=== PATIENT | male | born 1975 | race Caucasian/White ===

== ENCOUNTER 2019-12-06 08:25 | Outpatient (REF) | payer MEDICAID, SELFPAY ==
[2019-12-06 09:15] LABS: Anion Gap 12 (12-20); Blood Urea Nitrogen 11 mg/dL (9-16); Calcium 9.2 mg/dL (8.4-10.2); Carbon Dioxide 29 mmol/L (22-29); Chloride 102 mmol/L (96-108); Cholesterol 211 mg/dL; Estimated Glomerular Filt Rate > 60; Glucose Fasting 118 mg/dL (60-99); HDL Cholesterol 54 mg/dL; LDL Cholesterol Calculated 131 mg/dl; Sodium 139 mmol/L (135-145); Triglycerides 130 mg/dL
== END 2019-12-06 08:26 | disposition home or self-care (01) ==
LOC: HO.LAB 08:25
PROVIDERS: PCP Family Medicine; Visit Provider Internal Medicine Cardiovascular Disease
DX: E78.5 Hyperlipidemia, unspecified (principal)
CPT/HCPCS: 80048; 80061

== ENCOUNTER 2020-02-23 00:28 | Emergency (ER) | payer MEDICAID, SELFPAY ==
[2020-02-23 00:57] VITALS: BP 163/100; PULSE 68; RESP 18; TEMP 36.9; O2SAT 94; BMI 37.0
--- NOTE | 2020-02-23 01:05 | ECG_ITS ---
Test Reason : HIGH BP Blood Pressure : / mmHG Vent. Rate : 069 BPM Atrial Rate : 069 BPM P-R Int : 150 ms QRS Dur : 090 ms QT Int : 398 ms P-R-T Axes : 041 -07 001 degrees QTc Int : 426 ms Normal sinus rhythm Minimal voltage criteria for LVH, may be normal variant Nonspecific T wave abnormality Abnormal ECG When compared with ECG of 05-JUL-2018 18:47, T wave amplitude has increased in Anterior leads Referred By: Linda Ragland Electronically Signed By:JEY REY
[2020-02-23 01:40] LABS: MANUAL DIFF FLAG NO
[2020-02-23 01:43] LABS: Basophils Absolute Auto 0.1 X10*3/uL (0.0-0.2); Basophils Percent Auto 0.6 % (0-2); Eosinophils Absolute Auto 0.2 X10*3/uL (0.0-0.4); Eosinophils Percent Auto 1.7 % (0-4); Hematocrit 48.9 % (42-52); Hemoglobin 16.5 g/dl (14.0-18.0); Imm Gran Abs Auto 0.04 X10*3/uL (0.00-0.03); Imm Gran Pct Auto 0.4 % (0.0-0.4); Lymphocytes Absolute Auto 3.4 X10*3/uL (1.2-4.9); Lymphocytes Percent Auto 31.4 % (20-40); Mean Corpuscular HGB Conc 33.7 g/dl (31.0-36.0); Mean Corpuscular Hemoglobin 30.4 pg (27.0-33.0); Mean Corpuscular Volume 90.2 fL (80-98); Mean Platelet Volume 10.2 fL (9.4-12.4); Monocytes Absolute Auto 1.3 X10*3/uL (0.1-1.2); Monocytes Percent Auto 12.4 % (2-11); Neutrophils Absolute Auto 5.8 X10*3/uL (2.0-8.3); Neutrophils Percent Auto 53.5 % (45-73); Platelet Count 374 X10*3/uL (160-400); Red Blood Count 5.42 X10*6/uL (4.60-5.80); Red Cell Distribution Width 14.4 % (11.0-16.0); White Blood Count 10.8 X10*3/uL (4.8-10.8)
[2020-02-23 01:47] LABS: Glucose Urine UA NEG (NEG); Leukocyte Esterase Urine NEG (NEG); Nitrite Urine NEG (NEG); PH 6.5 (5.0-8.0); Urine Blood 1+ (NEG); Urine Ketones NEG (NEG); Urine Protein NEG (NEG-TRACE)
[2020-02-23 01:51] LABS: Appearance Urine CLEAR; Color Urine YELLOW
[2020-02-23 01:54] LABS: Squamous Epithelial Cell Urine TRACE /LPF; WBC Urine 0-2 /HPF (0-4)
[2020-02-23 02:07] LABS: Amphetamine Screen Urine Not Detected (Not Detect); Barbiturates, Urine Not Detected (Not Detect); Benzodiazepines Screen Urine Not Detected (Not Detect); Cannabinoid Screen Urine Not Detected (Not Detect); Cocaine Screen Urine Not Detected (Not Detect); Opiate Screen Urine Not Detected (Not Detect); Phencyclidine Screen Urine Not Detected (Not Detect)
[2020-02-23 02:09] LABS: Alanine Aminotransferase 81 U/L (0-40); Albumin Level 4.8 g/dL (3.5-5.0); Alkaline Phosphatase 92 U/L (39-117); Anion Gap 15 (12-20); Aspartate Amino Transferase 48 U/L (5-37); Bilirubin Total 0.5 mg/dL (0.0-1.0); Blood Urea Nitrogen 12 mg/dL (9-16); Calcium 10.2 mg/dL (8.4-10.2); Carbon Dioxide 28 mmol/L (22-29); Chloride 100 mmol/L (96-108); Creatinine Clr Calc Pharmacy 148.3; Estimated Glomerular Filt Rate > 60; Glucose Random 96 mg/dL (60-115); Potassium 3.5 mmol/l (3.3-5.1); Sodium 139 mmol/L (135-145)
[2020-02-23 02:12] LABS: Troponin-I High Sensitivity 8.9 ng/L (<3.5-35.0)
--- NOTE | 2020-02-23 03:47 | ED_ITS ---
HPI - General Adult General Chief complaint: General Medical Stated complaint: High Blood Pressure Time Seen by Provider: 02/23/20 00:53 Source: patient Mode of arrival: ambulatory History of Present Illness HPI narrative: This is a 44-year-old male who presents with onset of right-sided headache without any visual changes that started at approximately 6:00 p.m. and is not associated with speech or extremity abnormalities. Patient states that he treats his high blood pressure with twice daily hydrochlorothiazide but that he missed his morning dose. He denies any history of migraines and did attempt to take Tylenol for the headache but states that it did not improve. He otherwise denies neck pain or photosensitivity. Related Data Allergies Allergy/AdvReac Type Severity Reaction Status Date / Time No Known Allergies Allergy Verified 02/23/20 01:04 [No Known Allergies*] Review of Systems Review of Systems: Pertinent positives and negatives as stated in HPI 10 point review systems otherwise negative. PMFSH Past Medical History Source: nursing notes reviewed Medical History Hypertension Social History Social History Alcohol intake: unknown Smoking Status: Unknown if ever smoked Use of substances other than those prescribed or required for medical reasons: Unknown Advance Directives: No Advance Directives Information Provided: No Physical Exam Vital Signs: Vital Signs: Last Vital Signs Temp 98.4 F 02/23/20 00:57 Pulse 64 02/23/20 06:00 Resp 15 02/23/20 06:00 BP 141/82 H 02/23/20 06:00 Pulse Ox 98 02/23/20 06:00 Body Mass Index 37.0 VITAL SIGNS: Reviewed. GENERAL: Well developed, well nourished, in no acute distress. HEAD: Normocephalic/atraumatic, EYES: PERRLA, EOMI intact without pain, no nystagmus/pallor/icterus noted EARS: Ext canals without abnormality NOSE: Nares patent bilateral OROPHARYNX: no oral lesions noted, posterior pharynx clear NECK: Supple, no adenopathy LUNGS: Normal breath sounds. SpO2<94> CARDIOVASCULAR: Regular rate and rhythm without noted murmurs, no JVD or lower extremity edema. ABDOMEN: Soft, non-tender, non-distended with bowel sounds. NEUROLOGIC: Alert and oriented x 4. Strength and sensation to light touch were grossly intact x 4, cranial nerves 2-12 are grossly intact, no pronator drift. Course Course Course Narrative: This is a 44-year-old male with history and clinical presentation consistent likely tension/migraine like headache and no focal deficits. All investigations reviewed thus far are without acute findings other than a mildly elevated troponin of 8.9 which will be repeated at 4:30 a.m. but there are no changes on EKG to suggest cardiac ischemia. Urinalysis is negative for presence of protein. HEART Score:3 Repeat troponin does not exceed delta 50, patient is asymptomatic, and there are no acute EKG changes when compared to prior. Patient was informed of all results and findings, communicated that he had significant improvement of his symptoms of headache and nausea, and was discharged in stable condition with instructions to follow-up with his primary care provider. Medical Decision Making Lab Data Result diagrams: 02/23/20 01:02/23/20 01:32 Labs: Lab Results 02/23/20 02/23/20 02/23/20 Range/Units 01:32 01:32 01:32 WBC 10.8 (4.8-10.8) X10*3/uL RBC 5.42 (4.60-5.80) X10*6/uL Hgb 16.5 (14.0-18.0) g/dl Hct 48.9 (42-52) % MCV 90.2 (80-98) fL MCH 30.4 (27.0-33.0) pg MCHC 33.7 (31.0-36.0) g/dl RDW 14.4 (11.0-16.0) % Plt Count 374 (160-400) X10*3/uL MPV 10.2 (9.4-12.4) fL Immature Gran % (Auto) 0.4 (0.0-0.4) % Neut % (Auto) 53.5 (45-73) % Lymph % (Auto) 31.4 (20-40) % [place] % (Auto) 12.4 H (2-11) % Eos % (Auto) 1.7 (0-4) % Baso % (Auto) 0.6 (0-2) % Lymph # (Auto) 3.4 (1.2-4.9) X10*3/uL [place] # (Auto) 1.3 H (0.1-1.2) X10*3/uL Eos # (Auto) 0.2 (0.0-0.4) X10*3/uL Baso # (Auto) 0.1 (0.0-0.2) X10*3/uL Abs Immat Gran (auto) 0.04 H (0.00-0.03) X10*3/uL Absolute Neuts (auto) 5.8 (2.0-8.3) X10*3/uL Absolute Nucleated RBC 0.000 (0.0-0.012) X10*3/uL Nucleated RBC % (auto) 0.0 (0.0-0.2) /100WBC Sodium 139 (135-145) mmol/L Potassium 3.5 (3.3-5.1) mmol/l Chloride 100 (96-108) mmol/L Carbon Dioxide 28 (22-29) mmol/L Anion Gap 15 (12-20) BUN 12 (9-16) mg/dL Creatinine 0.83 (0.5-1.4) mg/dL Estim Creat Clear Calc 148.3 Estimated GFR > 60 Random Glucose 96 (60-115) mg/dL Calcium 10.2 D (8.4-10.2) mg/dL Total Bilirubin 0.5 (0.0-1.0) mg/dL AST 48 H (5-37) U/L ALT 81 H (0-40) U/L Alkaline Phosphatase 92 (39-117) U/L Troponin I High Sens 8.9 (<3.5-35.0) ng/L Total Protein 8.0 (6.5-8.0) g/dL Albumin 4.8 (3.5-5.0) g/dL Urine Color Urine Appearance Urine pH (5.0-8.0) Ur Specific [place] (1.005-1.025) Urine Protein (NEG-TRACE) MG/DL Urine Glucose (UA) (NEG) MG/DL Urine Ketones (NEG) MG/DL Urine Blood (NEG) Urine Nitrite (NEG) Ur Leukocyte Esterase (NEG) Urine RBC (0) /HPF Urine WBC (0-4) /HPF Ur Squamous Epith Cells /LPF Urine Bacteria /LPF Urine Opiates Screen (Not Detect) Ur Barbiturates Screen (Not Detect) Ur Phencyclidine Scrn (Not Detect) Ur Amphetamines Screen (Not Detect) U Benzodiazepines Scrn (Not Detect) Urine Cocaine Screen (Not Detect) U Marijuana (THC) Screen (Not Detect) 02/23/20 02/23/20 02/23/20 Range/Units 01:32 01:32 03:50 WBC (4.8-10.8) X10*3/uL RBC (4.60-5.80) X10*6/uL Hgb (14.0-18.0) g/dl Hct (42-52) % MCV (80-98) fL MCH (27.0-33.0) pg MCHC (31.0-36.0) g/dl RDW (11.0-16.0) % Plt Count (160-400) X10*3/uL MPV (9.4-12.4) fL Immature Gran % (Auto) (0.0-0.4) % Neut % (Auto) (45-73) % Lymph % (Auto) (20-40) % [place] % (Auto) (2-11) % Eos % (Auto) (0-4) % Baso % (Auto) (0-2) % Lymph # (Auto) (1.2-4.9) X10*3/uL [place] # (Auto) (0.1-1.2) X10*3/uL Eos # (Auto) (0.0-0.4) X10*3/uL Baso # (Auto) (0.0-0.2) X10*3/uL Abs Immat Gran (auto) (0.00-0.03) X10*3/uL Absolute Neuts (auto) (2.0-8.3) X10*3/uL Absolute Nucleated RBC (0.0-0.012) X10*3/uL Nucleated RBC % (auto) (0.0-0.2) /100WBC Sodium (135-145) mmol/L Potassium (3.3-5.1) mmol/l Chloride (96-108) mmol/L Carbon Dioxide (22-29) mmol/L Anion Gap (12-20) BUN (9-16) mg/dL Creatinine (0.5-1.4) mg/dL Estim Creat Clear Calc Estimated GFR Random Glucose (60-115) mg/dL Calcium (8.4-10.2) mg/dL Total Bilirubin (0.0-1.0) mg/dL AST (5-37) U/L ALT (0-40) U/L Alkaline Phosphatase (39-117) U/L Troponin I High Sens 9.4 (<3.5-35.0) ng/L Total Protein (6.5-8.0) g/dL Albumin (3.5-5.0) g/dL Urine Color YELLOW Urine Appearance CLEAR Urine pH 6.5 (5.0-8.0) Ur Specific [place] 1.020 (1.005-1.025) Urine Protein NEG (NEG-TRACE) MG/DL Urine Glucose (UA) NEG (NEG) MG/DL Urine Ketones NEG (NEG) MG/DL Urine Blood 1+ H (NEG) Urine Nitrite NEG (NEG) Ur Leukocyte Esterase NEG (NEG) Urine RBC 1-4 (0) /HPF Urine WBC 0-2 (0-4) /HPF Ur Squamous Epith Cells TRACE /LPF Urine Bacteria NONE /LPF Urine Opiates Screen Not Detected (Not Detect) Ur Barbiturates Screen Not Detected (Not Detect) Ur Phencyclidine Scrn Not Detected (Not Detect) Ur Amphetamines Screen Not Detected (Not Detect) U Benzodiazepines Scrn Not Detected (Not Detect) Urine Cocaine Screen Not Detected (Not Detect) U Marijuana (THC) Screen Not Detected (Not Detect) ECG Data Attestation: I personally reviewed and interpreted this ECG as follows: Interpretation: Normal sinus rhythm, heart rate-69, no evidence acute ischemia, OK/QRS/QTC are within normal limits. Discharge Plan Discharge Clinical Impression: Elevated blood pressure reading Headache Qualifiers: Headache type: unspecified Headache chronicity pattern: acute headache Intractability: not intractable Qualified Code(s): R51.9 - Headache, unspecified Patient Disposition: Home, Self-Care Instructions: Hypertension (ED), General Headache (ED) Additional Instructions: 1. Reanude todos los medicamentos caseros seg?n lo prescrito, especialmente los medicamentos para la presi?n arterial. 2. Tylenol 1000 mg, por v?a oral, cada 6 horas seg?n sea necesario para el dolor de javier. 3. Ibuprofeno 400 mg, por v?a oral con leche o alimentos, cada 6 horas seg?n sea necesario para el dolor de javeir. Incrementa la hidrataci?n de fluidos especialmente con agua. 4. Edward un seguimiento con el proveedor de atenci?n primaria. Referrals: Physician,Unknown [Primary Care Provider] - 2 days (Re-evaluation and management for headache and blood pressure.) Stand Alone Forms: Work/School Release Print Language: Irish
[2020-02-23] MEDS: Acetaminophen 325 MG TABLET 975 MG PO (03:51)
[2020-02-23] MEDS: Ketorolac Tromethamine 15 MG/ML VIAL IM (03:53)
[2020-02-23 03:55] VITALS: BP 146/94; PULSE 64; RESP 15; O2SAT 96
--- NOTE | 2020-02-23 03:59 | PC.NURSE ---
patient medicated per emar as noted. Patient complaining of 10/10 pain on right side of his head
[2020-02-23 04:27] LABS: Troponin-I High Sensitivity 9.4 ng/L (<3.5-35.0)
[2020-02-23 06:00] VITALS: BP 141/82; PULSE 64; RESP 15; O2SAT 98
== END 2020-02-23 06:45 | disposition home or self-care (01) ==
PROVIDERS: Emergency Provider Student in an Organized Health Care Education/Training Program
DX: R51.9 Headache, unspecified (principal); I10 Essential (primary) hypertension; Z79.899 Other long term (current) drug therapy
CPT/HCPCS: 36415; 80053; 80307; 81001; 84484; 85025; 93005; 96372; 99284; J1885

== ENCOUNTER 2020-03-04 16:13 | Outpatient (REF) | payer MEDICAID, SELFPAY | END 2020-03-04 16:14 | disposition home or self-care (01) | LOC: HO.LAB 16:13 | PROVIDERS: Visit Provider Internal Medicine | DX: Z20.822 Contact with and (suspected) exposure to COVID-19 (principal) | CPT/HCPCS: 36415; C9803; U0003 ==

== ENCOUNTER 2020-03-26 06:38 | Outpatient (REF) | payer MEDICAID, SELFPAY ==
[2020-03-26 07:53] LABS: Cholesterol 131 mg/dL; HDL Cholesterol 46 mg/dL; LDL Cholesterol Calculated 68 mg/dl; Triglycerides 85 mg/dL
[2020-03-26 07:56] LABS: Estimated Average Glucose 114 mg/dL; Hemoglobin A1c % 5.6 %
[2020-03-26 08:09] LABS: TSH reflex Free T4 6.07 uIU/mL (0.32-4.0)
[2020-03-26 08:16] LABS: HIV AB/AG Nonreactive (Nonreactive); HIV Num 1 0.07 S/CO (0.00-0.99)
[2020-03-26 08:53] LABS: Free T4 (Free Thyroxine) 0.81 ng/dL (0.71-1.85)
[2020-03-28 03:56] LABS: C. trachomatis RNA TMA NOT DETECTED (NOT DETECTED); N. gonorrhoeae RNA TMA NOT DETECTED (NOT DETECTED)
== END 2020-03-26 06:39 | disposition home or self-care (01) ==
LOC: HO.LAB 06:38
PROVIDERS: PCP Nurse Practitioner Primary Care; Visit Provider Nurse Practitioner Primary Care
DX: Z11.4 Encounter for screening for human immunodeficiency virus [HIV] (principal); Z11.3 Encounter for screening for infections with a predominantly sexual mode of transmission; E03.9 Hypothyroidism, unspecified; E87.6 Hypokalemia; I10 Essential (primary) hypertension; N40.1 Benign prostatic hyperplasia with lower urinary tract symptoms; N42.81 Prostatodynia syndrome
CPT/HCPCS: 36415; 80061; 83036; 84439; 84443; 87389; 87491; 87591

== ENCOUNTER 2020-03-30 18:43 | Outpatient (REF) | payer MEDICAID, SELFPAY ==
--- NOTE | ~2020-03-30 | MR_ITS ---
EXAMINATION: MR LUMBAR SPINE WITHOUT CONTRAST CLINICAL INFORMATION: 3 month low back pain to groin numbness in genital area. COMPARISON: None TECHNIQUE: MRI of the lumbar spine was obtained using routine sequences without contrast. FINDINGS: The lumbar vertebral bodies maintain normal height and alignment. No significant disc height loss is seen. There is no bone marrow edema. The distal spinal cord appears normal. The conus medullaris terminates normally at the L2 level. The visualized paraspinal muscles and intra-abdominal and pelvic contents are within normal limits. SPINAL LEVELS: L1-L2: No posterior disc abnormality. No spinal canal or neural foraminal stenosis. L2-L3: No posterior disc abnormality. No spinal canal or neural foraminal stenosis. L3-L4: Left and right foraminal protrusions are seen compressing the left more than right exiting L3 nerve roots. Mild facet arthropathy. No significant spinal canal stenosis. L4-L5: Disc bulging with mild to moderate facet arthropathy. Mild spinal canal stenosis and bilateral subarticular stenosis. Left foraminal protrusion with small extrusion component is seen compressing the exiting left L4 nerve root. Right foraminal protrusion is also seen mildly compressing the exiting right L4 nerve root. L5-S1: Broad-based left subarticular/foraminal protrusion is seen compressing the traversing left S1 and exiting left L5 nerve root. No spinal canal stenosis. No right-sided foraminal nerve root compression. MR/MR lumbar spine wo con IMPRESSION: At L3-L4 there are left greater than right foraminal protrusions resulting in compression of the exiting left L3-4 than right L3 nerve root. At L4-L5 there is left foraminal protrusion with small extrusion component is seen compressing the exiting left L4 nerve root. Right foraminal protrusion mildly compresses the exiting right L4 nerve root. At L5-S1 there is left subarticular/foraminal protrusion seen compressing the traversing left S1 and exiting left L5 nerve root.
== END 2020-03-30 18:44 | disposition home or self-care (01) ==
LOC: HO.MRI 18:43
PROVIDERS: Visit Provider Nurse Practitioner Primary Care
DX: M54.5 Low back pain (principal); R10.30 Lower abdominal pain, unspecified
CPT/HCPCS: 72148

== ENCOUNTER 2020-06-21 16:53 | Emergency (ER) | payer MEDICAID, SELFPAY ==
[2020-06-21 18:54] VITALS: BP 135/84; PULSE 79; RESP 18; TEMP 37.4; O2SAT 98; BMI 35.9
[2020-06-21] MEDS: Lidocaine HCl 1 % MPF 5 ML VIAL SUBCUT (19:27)
[2020-06-21] MEDS: cephALEXin 500 MG CAPSULE PO (19:28)
[2020-06-21] MEDS: Ibuprofen 800 MG TABLET PO (19:28)
--- NOTE | 2020-06-21 19:36 | ED_ITS ---
HPI - Skin/Abscess/Foreign Bdy General Chief complaint: Skin/Abscess/Foreign Body Stated complaint: insect bite on foot Time Seen by Provider: 06/21/20 19:08 Source: patient Mode of arrival: ambulatory Limitations: no limitations History of Present Illness complaint: abscess/boil Onset (ago): day(s) (Three days) Tetanus up to date: unsure Location: RLE Severity: moderate Severity scale (1-10): 10 Quality: aching Pain Consistency: constant Relieving factors: none Exacerbating factors: none Context: other (Possible bug bite) Associated symptoms: denies other symptoms Treatments prior to arrival: none Related Data Previous Rx's Medication Instructions Recorded acetaminophen [Tylenol Extra 1,000 mg PO QID PRN #14 tab 06/21/20 Strength] cephalexin 500 mg PO BID 14 Days #28 cap 06/21/20 doxycycline monohydrate 100 mg PO BID 14 Days #28 cap 06/21/20 ibuprofen 800 mg PO Q8H PRN #14 tab 06/21/20 oxycodone 5 mg PO BID PRN #10 tab 06/21/20 Allergies Allergy/AdvReac Type Severity Reaction Status Date / Time No Known Allergies Allergy Verified 06/21/20 18:54 [No Known Allergies*] Review of Systems Review of Systems: Constitutional : No Fever, No Chills, Cardiovascular : No Chest Pain, No SOB Respiratory : No Dyspnea Gastrointestinal : No abdominal pain Musculoskeletal : No Joint Swelling Skin : positive abscess/surrounding erythema, no skin laceration, No Foreign bodies, No rash Neuro : No Weakness, No Numbness/tingling Psych : No SI/HI/thoughts of self injury Yes all other systems are reviewed and are negative [facility] Past Medical History Attestation statement: The following information was validated with the patient. Medical History Hypertension Social History Social History Alcohol intake: unknown Smoking Status: Unknown if ever smoked Advance Directives: No Advance Directives Information Provided: No Physical Exam Vital Signs: Vital Signs: Last Vital Signs Temp 99.3 F 06/21/20 18:54 Pulse 79 06/21/20 18:54 Resp 18 06/21/20 18:54 BP 135/84 06/21/20 18:54 Pulse Ox 98 05/17/21 18:54 Body Mass Index 35.9 vital signs have been reviewed as normal and appeared to be correct. Blood pressure normal. Heart rate normal. Respiration rate normal. Temperature normal. Oxygen saturation normal. Appearance: Alert. Oriented X3. No acute distress. Head: Normal external exam. Normocephalic. Eyes: PERRLA. EOMI. Conjunctiva and sclera normal. Eyelids normal. ENT: Pharynx normal. Uvula midline. Moist mucous membranes. Neck: Normal inspection. Neck supple. FROM. No adenopathy. No meningeal signs. CVS: Normal heart rate and rhythm. Heart sound normal. No murmurs noted. Pulses normal throughout. Respiratory: No respiratory distress. Painless inspiration. Breath sounds normal. No wheezes/rales/rhonchi noted. Chest nontender. No accessory muscle usage noted or decreased air movement noted. Back: Full range of motion noted. Skin: Patient with moderate erythema and fluctuance to right lower leg no streaking/induration/foreign bodies noted at this time. The rest of the Skin is warm and dry. Normal skin color. Normal skin turgor. No rashes/lesions/lacerations noted. Extremities: Extremities exhibit normal range of motion. Extremities nontender. Neuro: Oriented X 3. No motor deficit. No sensory deficit. Reflexes normal. Normal steady gait. Procedures Abscess I/D Site: lower extremity (Lower extremity) Side (if applicable): right Local Anesthetic: lidocaine 1% Amount of anesthesia used (mL): 5 Technique: needle aspiration and incised with blade Amount of fluid expressed (mL): 5 Sent for culture/gram staining?: No Irrigation: Yes Packing used?: none MDM - Skin/Abscess/Foreign Bdy Medical Records Attestation: I reviewed the patient's medical records. Discharge Plan Discharge Clinical Impression: Cellulitis, Abscess of skin or subcutaneous tissue Patient Disposition: Home, Self-Care Instructions: Cellulitis (ED), Abscess (ED) Prescriptions: New ibuprofen 800 mg tablet 800 mg PO Q8H PRN (Reason: pain) Qty: 14 RF: 0 acetaminophen [Tylenol Extra Strength] 500 mg tablet 1,000 mg PO QID PRN (Reason: fever or pain) Qty: 14 RF: 0 doxycycline monohydrate 100 mg capsule 100 mg PO BID 14 Days Qty: 28 RF: 0 cephalexin 500 mg capsule 500 mg PO BID 14 Days Qty: 28 RF: 0 oxycodone 5 mg tablet 5 mg PO BID PRN (Reason: pain) Qty: 10 RF: 0 Referrals: Karolina Adames NP [Primary Care Provider] - 2 days Stand Alone Forms: Work/School Release Print Language: [place]ian
== END 2020-06-21 19:50 | disposition home or self-care (01) ==
PROVIDERS: Emergency Provider Emergency Medicine Emergency Medical Services; PCP Nurse Practitioner Primary Care
DX: L02.415 Cutaneous abscess of right lower limb (principal); L03.115 Cellulitis of right lower limb; I10 Essential (primary) hypertension
CPT/HCPCS: 10060; 99284

== ENCOUNTER 2020-09-17 15:47 | Outpatient (REF) | payer MEDICAID, SELFPAY ==
--- NOTE | ~2020-09-17 | US_ITS ---
EXAMINATION: US SCROTUM CLINICAL INFORMATION: Deep groin pain. COMPARISON: Scrotal ultrasound dated 01/01/2018 TECHNIQUE: A sonogram of the scrotum was performed assessing frye-scale appearance and color Doppler flow. Spectral Doppler analysis of the arterial and venous flow were performed in the testes bilaterally. FINDINGS: RIGHT: Right testicle measures 5.2 x 3.0 x 3.6 cm, volume 29.5 mL. No focal testicular parenchymal lesions are visualized. Spectral Doppler analysis of the arterial and venous flow is normal in the right testis. Right epididymal head is normal in size. Complex right epididymal head cyst measuring 0.4 cm. This previously appeared simple on the ultrasound from 2018. No right varicocele is seen. Probable small amount of physiologic fluid within the right scrotum. Right epididymal Doppler flow is normal. LEFT: Left testicle measures 5.6 x 3.0 x 3.1 cm, volume 27.3 mL. No focal testicular parenchymal lesions are visualized. Spectral Doppler analysis of the arterial and venous flow is normal in the left testis. Left epididymal head is normal in size. No left varicocele is seen. Probable small amount of physiologic fluid within the left scrotum. Left epididymal Doppler flow is normal. US/US scrotum IMPRESSION: 1. Complex right epididymal head cyst measuring 0.4 cm. The cyst is unchanged in size and previously appeared simple in 2018. 2. Trace fluid within the right and left scrotum, likely representing trace physiologic fluid. 3. Sonographically unremarkable right and left testicle.
== END 2020-09-17 15:48 | disposition home or self-care (01) ==
LOC: HO.US 15:47
PROVIDERS: PCP Nurse Practitioner Primary Care; Visit Provider Nurse Practitioner Primary Care
DX: R10.30 Lower abdominal pain, unspecified (principal)
CPT/HCPCS: 76870

== ENCOUNTER 2020-12-12 13:20 | Emergency (ER) | payer MEDICAID, SELFPAY ==
[2020-12-12 13:59] VITALS: BP 138/82; PULSE 78; RESP 16; TEMP 36.3; O2SAT 100; BMI 34.4
--- NOTE | 2020-12-12 13:59 | ED.BACK ---
HPI - Back Pain/Injury General Chief Complaint: Back Pain/Injury Stated Complaint: back pain Time Seen by Provider: 12/12/20 13:58 Source: patient Mode of arrival: ambulatory Limitations: no limitations History of Present Illness HPI Narrative: declined medical interpreter, elicited complaint: back pain and back injury Pertinent past history: prior back pain Onset (ago): day(s) (Sunday) Timing: constant Severity: moderate Similar Symptoms Previously: Yes Quality: spasming and throbbing Location: lumbar spine and thoracic spine Radiation: none Exacerbating factors: movement and walking Relieving factors: none Context: other (painting and bending over felt a pull and since then has had pain) Associated symptoms: denies other symptoms Treatments prior to arrival: NSAIDS Work related injury: Yes Related Data Previous Rx's Medication Instructions Recorded acetaminophen 500 mg tablet 1,000 mg PO QID PRN #14 tab 06/21/20 (Tylenol Extra Strength) cephalexin 500 mg capsule 500 mg PO BID 14 Days #28 cap 06/21/20 doxycycline monohydrate 100 mg 100 mg PO BID 14 Days #28 cap 06/21/20 capsule ibuprofen 800 mg tablet 800 mg PO Q8H PRN #14 tab 06/21/20 oxycodone 5 mg tablet 5 mg PO BID PRN #10 tab 06/21/20 diazepam 5 mg tablet (Valium) 5 mg PO TID PRN #10 tab 12/12/20 lidocaine 4 % topical patch 1 patch TOPICAL DAILY PRN #10 ea 12/12/20 Allergies Allergy/AdvReac Type Severity Reaction Status Date / Time No Known Allergies Allergy Verified 06/21/20 18:54 [No Known Allergies*] Review of Systems Review of Systems: Constitutional : No Weight loss, No Fever, No Chills, ENT/Mouth : No Hearing loss, No Ear Pain, No Nasal Congestion, No Sinus Pain, No Hoarseness, No sore throat, No Rhinorrhea, No Swallowing Difficulty Cardiovascular : No Chest Pain, No SOB Respiratory : No Cough, No Dyspnea Gastrointestinal : No Nausea, No Vomiting, No Diarrhea, No abdominal Pain, No Hematochezia, No Melena Genitourinary : No Dysuria, No Urinary Frequency, No Hematuria, No Urinary Incontinence, Musculoskeletal : positive back pain Skin : No Skin Lesions, No rash Neuro : No Weakness, No Numbness, No Paresthesias, no loss of bowel or bladder incontinence, no saddle anesthesia [facility] Past Medical History Attestation statement: The following information was validated with the patient. Medical History Hypertension Social History Social History (Updated 12/12/20 @ 14:04 by Desire Caputo DO) Alcohol intake: unknown Patient Tobacco Use Status: Never used Tobacco Use of substances other than those prescribed or required for medical reasons: No Advance Directives: No Physical Exam Vital Signs: Appearance: Alert. Oriented X3. No acute distress. Eyes: Pupils equal, round and reactive to light. ENT: Pharynx normal. Neck: Normal inspection. Neck supple. CVS: Normal heart rate and rhythm. Pulses normal. Respiratory: No respiratory distress. Breath sounds normal. Abdomen: Soft and nontender. Back: paraspinal spasm on R side from mid lumbar up to thoracic reproduces pain Skin: Skin warm and dry. Normal skin color. Normal skin turgor. Extremities: No lower extremity edema. SILT inner thigh Neuro: Oriented X 3. No motor deficit. No sensory deficit. MDM - Back Pain/Injury MDM Narrative Medical decision making narrative: 44 yo male with HTN here after R sided back spasms - no b/b incontinence, no saddle anesthesia no IVDA started after rolling paint and bending over - no red flags, pain patches and muscle relaxers, anticipate DC home Discharge Plan Discharge Clinical Impression: Paraspinal muscle spasm Patient Disposition: Home, Self-Care Instructions: Muscle Spasm (ED) Additional Instructions: return to ED for any worsening symptoms or concerns apply heat and massage aplicarenu gates Prescriptions: New lidocaine 4 % adhesive patch,medicated 1 patch topical DAILY PRN (Reason: pain) Qty: 10 RF: 0 diazepam [Valium] 5 mg tablet 5 mg PO TID PRN (Reason: muscle spasm) Qty: 10 RF: 0 No Action ibuprofen 800 mg tablet 800 mg PO Q8H PRN (Reason: pain) Qty: 14 RF: 0 acetaminophen [Tylenol Extra Strength] 500 mg tablet 1,000 mg PO QID PRN (Reason: fever or pain) Qty: 14 RF: 0 doxycycline monohydrate 100 mg capsule 100 mg PO BID 14 Days Qty: 28 RF: 0 cephalexin 500 mg capsule 500 mg PO BID 14 Days Qty: 28 RF: 0 oxycodone 5 mg tablet 5 mg PO BID PRN (Reason: pain) Qty: 10 RF: 0 Stand Alone Forms: Work/School Release
[2020-12-12] MEDS: Cyclobenzaprine HCl 10 MG TABLET PO (14:06)
[2020-12-12] MEDS: Lidocaine 4 % Patch ADH..PATCH 2 PATCH TRANSDERMA (14:06)
== END 2020-12-12 14:13 | disposition home or self-care (01) ==
PROVIDERS: Emergency Provider Emergency Medicine; PCP Nurse Practitioner Primary Care
DX: Z04.2 Encounter for examination and observation following work accident (principal); M62.830 Muscle spasm of back; M54.50 Low back pain, unspecified; M54.6 Pain in thoracic spine; I10 Essential (primary) hypertension
CPT/HCPCS: 99283; 99284

== ENCOUNTER 2021-04-07 18:54 | Emergency (ER) | payer MEDICAID, SELFPAY ==
[2021-04-07 19:52] VITALS: BP 131/85; PULSE 82; RESP 18; TEMP 36.6; O2SAT 96; BMI 38.9
--- NOTE | 2021-04-07 22:06 | ED_ITS ---
HPI - General Adult General Chief complaint: Skin/Abscess/Foreign Body Stated complaint: Right side underarm abscess Time Seen by Provider: 04/07/21 22:06 Source: patient Mode of arrival: ambulatory Limitations: no limitations History of Present Illness HPI narrative: 45-year-old male presents to ED for right underarm painful lump present for the past 5 days. Patient states history of recurrent abscesses. Patient denies any fever, chills, any recent trauma to right upper extremity. Related Data Previous Rx's Medication Instructions Recorded acetaminophen 500 mg tablet 1,000 mg PO QID PRN #14 tab 06/21/20 (Tylenol Extra Strength) cephalexin 500 mg capsule 500 mg PO BID 14 Days #28 cap 06/21/20 doxycycline monohydrate 100 mg 100 mg PO BID 14 Days #28 cap 06/21/20 capsule ibuprofen 800 mg tablet 800 mg PO Q8H PRN #14 tab 06/21/20 oxycodone 5 mg tablet 5 mg PO BID PRN #10 tab 06/21/20 diazepam 5 mg tablet (Valium) 5 mg PO TID PRN #10 tab 12/12/20 lidocaine 4 % topical patch 1 patch TOPICAL DAILY PRN #10 ea 12/12/20 cephalexin 500 mg capsule 500 mg PO QID 7 Days #28 cap 04/07/21 doxycycline hyclate 100 mg capsule 100 mg PO BID 7 Days #14 cap 04/07/21 naproxen 500 mg tablet 500 mg PO BID PRN 10 Days #20 tab 04/07/21 Allergies Allergy/AdvReac Type Severity Reaction Status Date / Time No Known Allergies Allergy Verified 04/07/21 19:51 [No Known Allergies*] Review of Systems Review of Systems: Painful lump on the right upper extremity Yes all other systems are reviewed and are negative ON LICENSE OF [facility] Past Medical History Medical History (Updated 04/08/21 @ 00:02 by Radha Blandon) Abscess Hypertension Social History Social History (Updated 12/12/20 @ 14:04 by Desire Caputo DO) Alcohol intake: unknown Patient Tobacco Use Status: Never used Tobacco Advance Directives: No Advance Directives Information Provided: Yes Physical Exam ED Vital Signs: Vital Signs - 24 hr 04/07/21 19:52 Temperature 97.8 F Pulse Rate 82 Respiratory Rate 18 Blood Pressure 131/85 Pulse Oximetry 96 BMI result Body Mass Index 38.9 Const General: cooperative, healthy appearing, comfortable, no acute distress, well developed, alert, awake and Physically active Orientation/consciousness: patient oriented x3 [facility] Head: Yes normal to inspection, Yes No palpable skull fracture present, Yes normocephalic, Yes atraumatic and No abrasion Eyes General: appearance normal, both eyes and all related structures Neck Neck: Yes normal visual inspection, Yes full ROM, Yes no lymphadenopathy, Yes no meningeal signs, Yes trachea midline, Yes supple, No anterior neck swelling and No tender Chest Chest palpation & inspection: normal inspection of the chest and normal palpation of entire chest wall Chest/axillae images: 1. Small size lump that is erythematous and tender on palpation. Lump is hard and nonfluctuant. Resp Effort & Inspection: normal respiratory effort and able to speak in complete sentences Auscultation: clear to auscultation bilaterally Cardio Jugular venous distension: no JVD Heart sounds: S1 normal heart sound present and S2 normal heart sound present GI Inspection: Yes normal to inspection and No abdominal wall ecchymosis Palpation (GI): Soft to palpation, not firm, nontender, no guarding and not rigid General: No CVA tenderness and Yes no CVA tenderness Back/Spine/Pelvis Back: no CVA tenderness, No CVA tenderness and No back tenderness Skin General skin exam: no rashes or lesions noted and elasticity normal Neuro General: patient oriented x3, gait normal, no meningeal signs and CN's II-XI intact bilaterally Cranial nerves: Yes CN's II-XII intact bilaterally Extrem General: Yes normal to inspection and Yes full ROM Psych Appearance: grossly normal, well kempt and not disheveled Course Course Course Narrative: Early abscess Reevaluation(s) Reevaluation #1: Abscess not yet ready to be drained. Patient will be discharged with antibiotics educated on warm compress. Time: 22:10 Medical Decision Making [facility] Narrative Medical decision making narrative: Early abscess Discharge Plan Discharge Clinical Impression: Abscess of skin or subcutaneous tissue Patient Disposition: Home, Self-Care Instructions: Abscess (ED) Additional Instructions: Presently no indication for incision and drainage. Recommend antibiotics warm compress 4 times a day for 15 minutes. Return to the ED immediately for increased size, severe pain, worsening redness, pus discharge, foul odor, fever, chills, or any other concerning symptoms Prescriptions: New cephalexin 500 mg capsule 500 mg PO QID 7 Days Qty: 28 0RF doxycycline hyclate 100 mg capsule 100 mg PO BID 7 Days Qty: 14 0RF naproxen 500 mg tablet 500 mg PO BID PRN (Reason: pain) 10 Days Qty: 20 0RF No Action ibuprofen 800 mg tablet 800 mg PO Q8H PRN (Reason: pain) Qty: 14 0RF acetaminophen [Tylenol Extra Strength] 500 mg tablet 1,000 mg PO QID PRN (Reason: fever or pain) Qty: 14 0RF doxycycline monohydrate 100 mg capsule 100 mg PO BID 14 Days Qty: 28 0RF cephalexin 500 mg capsule 500 mg PO BID 14 Days Qty: 28 0RF oxycodone 5 mg tablet 5 mg PO BID PRN (Reason: pain) Qty: 10 0RF lidocaine 4 % adhesive patch,medicated 1 patch topical DAILY PRN (Reason: pain) Qty: 10 0RF Rx Instructions: may leave on for up to 12 hrs diazepam [Valium] 5 mg tablet 5 mg PO TID PRN (Reason: muscle spasm) Qty: 10 0RF Stand Alone Forms: Work/School Release Interventions: ED Discharge Assessment Last Done: 04/07/21 22:43 Discharge Date/Time: 04/07/21 22:44 Print Language: Greenlandic
--- NOTE | 2021-04-07 22:43 | PC.NURSE ---
2215 PT NOT IN ROOM. ? LEFT AFTER EVAL.
== END 2021-04-07 22:44 | disposition home or self-care (01) ==
PROVIDERS: Emergency Provider Emergency Medicine Emergency Medical Services; PCP Nurse Practitioner Primary Care
DX: L02.411 Cutaneous abscess of right axilla (principal); M79.621 Pain in right upper arm; I10 Essential (primary) hypertension
CPT/HCPCS: 99283

== ENCOUNTER 2021-04-23 21:23 | Emergency (ER) | payer MEDICAID, SELFPAY ==
[2021-04-23 22:03] VITALS: BP 144/89; PULSE 87; RESP 20; TEMP 37.2; O2SAT 97; BMI 35.6
--- NOTE | 2021-04-23 22:25 | ED.URI ---
HPI - URI/Sore Throat General Chief Complaint: Upper Respiratory Symptoms Stated Complaint: Sinus congestion Time Seen by Provider: 04/23/21 22:20 Source: patient Mode of arrival: ambulatory Limitations: no limitations History of Present Illness MD elicited complaint: nasal congestion and sinus pain Pertinent past history: sinusitis Onset (ago): day(s) (5) Consistency: constant Severity: moderate Description of mucous: clear Able to tolerate fluids by mouth: Yes Exacerbating factors: supine positioning and leaning forward Relieving factors: nothing Associated symptoms: nasal congestion Treatments prior to arrival: other (tried OTC medications, nasal spray, flonase, zyrtec) Related Data Previous Rx's Medication Instructions Recorded acetaminophen 500 mg tablet 1,000 mg PO QID PRN #14 tab 06/21/20 (Tylenol Extra Strength) cephalexin 500 mg capsule 500 mg PO BID 14 Days #28 cap 06/21/20 doxycycline monohydrate 100 mg 100 mg PO BID 14 Days #28 cap 06/21/20 capsule ibuprofen 800 mg tablet 800 mg PO Q8H PRN #14 tab 06/21/20 oxycodone 5 mg tablet 5 mg PO BID PRN #10 tab 06/21/20 diazepam 5 mg tablet (Valium) 5 mg PO TID PRN #10 tab 12/12/20 lidocaine 4 % topical patch 1 patch TOPICAL DAILY PRN #10 ea 12/12/20 cephalexin 500 mg capsule 500 mg PO QID 7 Days #28 cap 04/07/21 doxycycline hyclate 100 mg capsule 100 mg PO BID 7 Days #14 cap 04/07/21 naproxen 500 mg tablet 500 mg PO BID PRN 10 Days #20 tab 04/07/21 amoxicillin 875 mg-potassium 1 tab PO BID #14 tab 04/23/21 clavulanate 125 mg tablet prednisone 20 mg tablet 60 mg PO DAILY 4 Days #12 tab 04/23/21 Allergies Allergy/AdvReac Type Severity Reaction Status Date / Time No Known Allergies Allergy Verified 04/07/21 19:51 [No Known Allergies*] Review of Systems Review of Systems: Constitutional : no Fever, no Chills, no fatigue ENT/Mouth : no sore throat, pos nasal congestion, pos sinus pain Eyes: No Discharge Cardiovascular : No Chest Pain, No SOB Respiratory : No Cough, No Sputum Gastrointestinal : No Nausea, No Vomiting, No Diarrhea Genitourinary : No Dysuria, No Urinary Frequency Musculoskeletal : no Myalgia Skin : No rash Neuro : No Headache [facility] Past Medical History Attestation statement: The following information was validated with the patient. Medical History (Updated 04/23/21 @ 22:52 by Desire Caputo DO) Abscess Hypertension RAVINDRA (obstructive sleep apnea) Social History Social History Alcohol intake: unknown Patient Tobacco Use Status: Never used Tobacco Advance Directives: No Advance Directives Information Provided: No Physical Exam Vital Signs: Vital Signs: Last Vital Signs Temp 98.9 F 04/23/21 22:03 Pulse 87 04/23/21 22:03 Resp 20 04/23/21 22:03 BP 144/89 H 04/23/21 22:03 Pulse Ox 97 04/23/21 22:03 BMI result Body Mass Index 35.6 Appearance: Alert. Oriented X3. No acute distress. Eyes: Pupils equal, round and reactive to light. ENT: Pharynx normal. Mild swelling with ttp over bilateral max area with boggy turbinates and obvious nasal congested sounding Neck: Normal inspection. Neck supple. CVS: Normal heart rate and rhythm. Pulses normal. Respiratory: No respiratory distress. Breath sounds normal. Abdomen: Soft and non-tender. Skin: Skin warm and dry. Normal skin color. Normal skin turgor. Extremities: No lower extremity edema. Neuro: Oriented X 3. No motor deficit. No sensory deficit. MDM - URI/Sore Throat MDM Narrative Medical decision making narrative: 45 yo male no sig PMH other than RAVINDRA / HTN here with c/o 5 days of facial swelling and nasal congestion at this time he clinically appears to have sinusitis will start on augmentin and prednisone given degree of swelling and symptoms - no concern for deeper space infection Discharge Plan Discharge Clinical Impression: Sinusitis Qualifiers: Sinusitis location: maxillary Chronicity: acute Recurrence: non-recurrent Qualified Code(s): J01.00 - Acute maxillary sinusitis, unspecified Patient Disposition: Home, Self-Care Instructions: Sinusitis (ED) Additional Instructions: return to ED for any worsening symptoms or concerns Prescriptions: New prednisone 20 mg tablet 60 mg PO DAILY 4 Days Qty: 12 0RF amoxicillin-pot clavulanate 875-125 mg tablet 1 tab PO BID Qty: 14 0RF No Action ibuprofen 800 mg tablet 800 mg PO Q8H PRN (Reason: pain) Qty: 14 0RF acetaminophen [Tylenol Extra Strength] 500 mg tablet 1,000 mg PO QID PRN (Reason: fever or pain) Qty: 14 0RF doxycycline monohydrate 100 mg capsule 100 mg PO BID 14 Days Qty: 28 0RF cephalexin 500 mg capsule 500 mg PO BID 14 Days Qty: 28 0RF oxycodone 5 mg tablet 5 mg PO BID PRN (Reason: pain) Qty: 10 0RF lidocaine 4 % adhesive patch,medicated 1 patch topical DAILY PRN (Reason: pain) Qty: 10 0RF Rx Instructions: may leave on for up to 12 hrs diazepam [Valium] 5 mg tablet 5 mg PO TID PRN (Reason: muscle spasm) Qty: 10 0RF cephalexin 500 mg capsule 500 mg PO QID 7 Days Qty: 28 0RF doxycycline hyclate 100 mg capsule 100 mg PO BID 7 Days Qty: 14 0RF naproxen 500 mg tablet 500 mg PO BID PRN (Reason: pain) 10 Days Qty: 20 0RF
[2021-04-23] MEDS: predniSONE 20 MG TABLET 60 MG PO (22:51)
[2021-04-23] MEDS: Amoxicillin/Potassium Clav 875 MG TABLET PO (22:51)
[2021-04-23 22:56] LABS: COVID-19 Test Negative (Negative); Influenza A Negative (Negative); Influenza B2 Negative (Negative)
== END 2021-04-23 23:13 | disposition home or self-care (01) ==
PROVIDERS: Emergency Provider Emergency Medicine; PCP Nurse Practitioner Primary Care
DX: J01.00 Acute maxillary sinusitis, unspecified (principal); Z20.822 Contact with and (suspected) exposure to COVID-19
CPT/HCPCS: 87502; 87635; 99283

== ENCOUNTER → 2021-11-11 14:08 | Outpatient (BNVA) | payer MEDICAID, SELFPAY | PROVIDERS: PCP Nurse Practitioner Primary Care; Visit Provider Urology | DX: N52.01 Erectile dysfunction due to arterial insufficiency (principal); I10 Essential (primary) hypertension; Z79.82 Long term (current) use of aspirin; Z79.899 Other long term (current) drug therapy | CPT/HCPCS: 99202 ==

== ENCOUNTER 2021-12-27 06:15 | Outpatient (REF) | payer MEDICAID, SELFPAY ==
--- NOTE | ~2021-12-27 | XR_ITS ---
EXAMINATION: XR SHOULDER, RIGHT CLINICAL INFORMATION: Right shoulder pain COMPARISON: None TECHNIQUE: Right shoulder is imaged in 4 views. FINDINGS: There are mild degenerative changes acromioclavicular joint. The acromioclavicular alignment is normal. The glenohumeral joint appears normal. There is no fracture or dislocation or destructive process. No rotator cuff calcifications. XR/XR shoulder RT min 2V IMPRESSION: 1. Mild degenerative changes acromioclavicular joint. 2. No rotator cuff calcifications.
== END 2021-12-27 06:16 | disposition home or self-care (01) ==
LOC: HO.XRAY 06:15
PROVIDERS: Absent Provider Nurse Practitioner Primary Care; PCP Nurse Practitioner Primary Care; Visit Provider Internal Medicine
DX: M25.511 Pain in right shoulder (principal)
CPT/HCPCS: 73030

== ENCOUNTER → 2022-01-16 13:44 | Outpatient (BNVA) | payer MEDICAID, SELFPAY | PROVIDERS: PCP Nurse Practitioner Primary Care; Visit Provider Orthopaedic Surgery | DX: M19.011 Primary osteoarthritis, right shoulder (principal); M25.511 Pain in right shoulder; Z79.899 Other long term (current) drug therapy | CPT/HCPCS: 20600; 20605; 99202; J1100 ==

== ENCOUNTER 2022-02-16 06:23 | Outpatient (REF) | payer MEDICAID, SELFPAY ==
[2022-02-23 11:28] LABS: Testosterone, Total 521 ng/dL (250-1100)
== END 2022-02-16 06:24 | disposition home or self-care (01) ==
LOC: HO.LAB 06:23
PROVIDERS: PCP Nurse Practitioner Primary Care; Visit Provider Urology
DX: N52.01 Erectile dysfunction due to arterial insufficiency (principal)
CPT/HCPCS: 36415; 84403

== ENCOUNTER → 2022-02-17 15:11 | Outpatient (BNVA) | payer MEDICAID, SELFPAY | PROVIDERS: PCP Nurse Practitioner Primary Care; Visit Provider Urology | DX: Z13.89 Encounter for screening for other disorder (principal) ==

== ENCOUNTER → 2022-02-23 13:26 | Outpatient (BNVA) | payer MEDICAID, SELFPAY | PROVIDERS: PCP Nurse Practitioner Primary Care; Visit Provider Urology | DX: Z13.89 Encounter for screening for other disorder (principal) ==

== ENCOUNTER 2022-04-13 15:00 | Outpatient (RCR) | payer MEDICAID, SELFPAY ==
--- NOTE | 2022-02-15 17:01 | MHC.PT.EP ---
[facility] [place] Office [place] [facility] [place] [facility] [address] Samantha Fink [address] [phone] F: [phone] F: [phone] F: [phone] F: [phone] Physical Therapy Plan of Care Date of Evaluation: Date of Surgery: Diagnosis: ACJ arthropathy Assessment: Patient is a 46 y.o. male who is referred to PT by Dr. Rishi Cabrales MD with Dx of ACJ arthropathy. PT diagnosis is consistent with ACJ sprain/strain and with subacromial impingement syndrome occurring. Patient impairments include poor posture, pain, weakness, limited ROM. Patient current functional limitations are don/doff shirts, reaching overhead, lifting one handed, lifting overhead for work, using R arm repetitively for tasks, and sleeping on involved side. Patient will benefit from skilled PT to address aforementioned impairments and functional limitations to meet established goals. Frequency and Duration: The patient will be seen 2x/week for 4 weeks Short Term Goals: 2 weeks Patient demonstrates consistency and independence with HEP to self manage symptoms. Patient presents with increased R shoulder AROM ER 65 degrees to put on jacket/shirt without difficulty. Activity Director Goals: 4 weeks Patient presents with increased R shoulder flexion AROM 170 degrees to reach overhead for work. Patient presents with increased R shoulder flexion strength 5/5 to be able to lift to shoulder height for work. Treatment Plan: Modalities to reduce pain, spasms and effusion. Manual therapy to restore motion and function. Therapeutic exercise to improve strength and flexibility. Neuromuscular re-education for posture and balance. Therapeutic activities to return to functional activities of daily living. Electronically signed by: Vannessa Calles, PT, DPT Please sign and return to therapist. Thank you for your referral.
--- NOTE | 2022-06-20 14:13 | MHC.PT.DC ---
[facility] [place] [facility] [place] [facility] [place] [facility] [address] Samantha Fink [address] [phone] F: [phone] F: [phone] F: [phone] F: [phone] Physical Therapy Discharge Report Diagnosis: ACJ arthropathy Date of Surgery: Date of Evaluation: 02/15/22 Date of Discharge: 06/20/22 Treatments to Date: 12 Cancellations to Date: No Shows to Date: Discharge Status: Independent with HEP Visit Non-compliance Discharge Summary: Patient did very well with PT, has independent HEP, but ceased attending on his own accord. Electronically signed by: Vannessa Calles, PT, DPT Please sign and return to therapist. Thank you for your referral.
== END 2022-06-20 14:13 | disposition home or self-care (01) ==
LOC: HO.PT 15:00
PROVIDERS: PCP Nurse Practitioner Primary Care; Visit Provider Orthopaedic Surgery
DX: M19.011 Primary osteoarthritis, right shoulder (principal)
CPT/HCPCS: 97035; 97110; 97112; 97140; 97161

== ENCOUNTER 2022-05-11 06:03 | Outpatient (REF) | payer MEDICAID, SELFPAY ==
[2022-05-11 06:13] LABS: MANUAL DIFF FLAG NO
[2022-05-11 07:59] LABS: Basophils Absolute Auto 0.1 X10*3/uL (0.0-0.2); Eosinophils Absolute Auto 0.3 X10*3/uL (0.0-0.4); Eosinophils Percent Auto 4.2 % (0-4); Hematocrit 45.9 % (42.0-52.0); Hemoglobin 15.7 g/dl (14.0-18.0); Imm Gran Abs Auto 0.02 X10*3/uL (0.00-0.03); Imm Gran Pct Auto 0.2 % (0.0-0.4); Lymphocytes Absolute Auto 3.3 X10*3/uL (1.2-4.9); Lymphocytes Percent Auto 41.2 % (20-40); Mean Corpuscular HGB Conc 34.2 g/dl (31.0-36.0); Mean Corpuscular Hemoglobin 30.7 pg (27.0-33.0); Mean Corpuscular Volume 89.6 fL (80.0-98.0); Mean Platelet Volume 10.7 fL (9.4-12.4); Monocytes Absolute Auto 0.9 X10*3/uL (0.1-1.2); Monocytes Percent Auto 11.3 % (2-11); Neutrophils Absolute Auto 3.4 x10*3/uL (2.0-8.3); Neutrophils Percent Auto 42.1 % (45-73); Platelet Count 343 X10*3/uL (160-400); Red Blood Count 5.12 X10*6/uL (4.60-5.80); Red Cell Distribution Width 12.7 % (11.0-16.0); White Blood Count 8.1 X10*3/uL (4.8-10.8)
[2022-05-11 08:28] LABS: Alanine Aminotransferase 63 U/L (0-40); Albumin Level 4.4 g/dL (3.5-5.0); Alkaline Phosphatase 95 U/L (39-117); Anion Gap 14 (12-20); Aspartate Amino Transferase 42 U/L (5-37); Bilirubin Total 0.4 mg/dL (0.0-1.0); Blood Urea Nitrogen 16 mg/dL (9-16); Calcium 9.6 mg/dL (8.4-10.2); Carbon Dioxide 26 mmol/L (22-29); Chloride 105 mmol/L (96-108); Estimated Glomerular Filt Rate > 60; Glucose Random 98 mg/dL (60-115); Potassium 3.9 mmol/L (3.3-5.1); Sodium 141 mmol/L (135-145); Total Protein 7.1 g/dL (6.5-8.0)
[2022-05-11 08:39] LABS: D Dimer High Sensitivity < 150 NG/ML
[2022-05-11 09:08] LABS: Free T4 (Free Thyroxine) 0.91 ng/dL (0.71-1.85)
== END 2022-05-11 06:04 | disposition home or self-care (01) ==
LOC: HO.LAB 06:03
PROVIDERS: Emergency Medicine; PCP Nurse Practitioner Primary Care; Visit Provider Registered Nurse
DX: R55 Syncope and collapse (principal)
CPT/HCPCS: 36415; 80053; 84439; 84443; 85025; 85379

== ENCOUNTER 2023-04-18 14:47 | Emergency (ER) | payer MEDICAID, SELFPAY ==
--- NOTE | ~2023-04-18 | XR_ITS ---
EXAMINATION: XR FOREARM, LEFT CLINICAL INFORMATION: Pain, injury COMPARISON: None available. TECHNIQUE: AP and lateral views of the left forearm were obtained. FINDINGS: The bones and soft tissues are normal. No fracture. Imaged portions of the elbow and wrist are unremarkable. Punctate radiopaque foreign body in the soft tissues of the mid forearm. XR/XR forearm LT 2V IMPRESSION: 1. No acute fracture. 2. Punctate radiopaque foreign body in the soft tissues of the mid forearm.
[2023-04-18 15:50] VITALS: BP 149/91; PULSE 60; RESP 17; TEMP 36.8; O2SAT 98; BMI 33.7
--- NOTE | 2023-04-18 16:53 | ED_ITS ---
HPI - Extremity Problem General Chief complaint: Extremity Injury, Upper Stated complaint: L Wrist Injury 04/15/23 Time Seen by Provider: 04/18/23 16:53 Source: patient Mode of arrival: ambulatory Limitations: no limitations History of Present Illness HPI Narrative: Patient is a 47 year old assigned male at with a history of BPH presenting to the emergency department today with left wrist and forearm pain. Patient states that earlier today he was on a ladder at home, fell, and hit his left forearm / wrist. Patient denies any head strike or loss of consciousness. Patient denies any dizziness, lightheadedness, abdominal pain, nausea, vomiting, fever, chills, blurry vision, double vision, loss of vision, chest pain, difficulty breathing, shortness of breath, back pain, night sweats, pain with urination, increased urinary frequency, increased urinary urgency, blood in his urine or stool, syncope or a near syncopal episode, bowel incontinence, bladder incontinence, bowel retention, bladder retention, or any other complaints at this time. MD Complaint: extremity pain Onset (ago): hour(s) Pain Consistency: constant Location: left and upper extremity Severity scale (1-10): 3 Quality: aching and dull Radiation: none Relieving factors: nothing Exacerbating factors: nothing Associated symptoms: denies other symptoms Related Data Previous Rx's Medication Instructions Recorded acetaminophen 500 mg tablet 1,000 mg (2 x 500 mg) PO QID PRN 06/21/20 (Tylenol Extra Strength) fever or pain #14 tabs cephalexin 500 mg capsule 500 mg PO BID 14 days #28 caps 06/21/20 doxycycline monohydrate 100 mg 100 mg PO BID 14 days #28 caps 06/21/20 capsule ibuprofen 800 mg tablet 800 mg PO Q8H PRN pain #14 tabs 06/21/20 oxycodone 5 mg tablet 5 mg PO BID PRN pain #10 tabs 06/21/20 diazepam 5 mg tablet (Valium) 5 mg PO TID PRN muscle spasm #10 12/12/20 tabs lidocaine 4 % topical patch 1 patch topical DAILY PRN pain #10 12/12/20 ea cephalexin 500 mg capsule 500 mg PO QID 7 days #28 caps 04/07/21 doxycycline hyclate 100 mg capsule 100 mg PO BID 7 days #14 caps 04/07/21 amoxicillin 875 mg-potassium 1 tab PO BID #14 tabs 04/23/21 clavulanate 125 mg tablet prednisone 20 mg tablet 60 mg (3 x 20 mg) PO DAILY 4 days 04/23/21 #12 tabs naproxen 500 mg tablet 500 mg PO BID PRN pain 30 days #60 01/16/22 tabs tadalafil 5 mg tablet 5 mg PO DAILY sexual activity 90 02/23/22 days #90 tabs Allergies Allergy/AdvReac Type Severity Reaction Status Date / Time No Known Allergies Allergy Verified 02/23/22 13:28 [No Known Allergies*] Review of Systems Constitutional: Constitutional: Reports no additional constitutional complaints, Denies chills, Denies fever(s) and Denies night sweats Eyes: Eyes: Reports no additional eye complaints, Denies blurry vision, Denies change in vision, Denies diplopia, Denies eye discharge, Denies loss of vision and Denies eye pain ENT: Denies dizziness Cardiovascular: Cardiovascular: Reports no additional cardiovascular complaints, Denies chest pain, Denies lightheadedness, Denies Loss of Consciousness and Denies dyspnea Respiratory: Respiratory: Reports no additional respiratory complaints and Denies dyspnea Gastrointestinal: Gastrointestinal: Reports no additional gastrointestinal complaints, Denies abdominal pain, Denies melena, Denies hematochezia, Denies change in bowel habits and Denies change in stool character Genitourinary: Genitourinary: Reports no additional male genitourinary complaints, Denies hematuria, Denies oliguria, Denies difficulty urinating, Denies dysuria, Denies urinary frequency, Denies urinary hesitancy, Denies urinary incontinence and Denies urinary urgency Musculoskeletal: Musculoskeletal: Reports no additional musculoskeletal complaints, Denies numbness and Denies tingling Comments: left arm pain Neurologic: Denies dizziness, Denies loss of vision, Denies numbness and Denies tingling Psychiatric: Psychiatric: Reports no additional psychiatric complaints Endocrine: Endocrine: Reports no additional endocrine complaints Hematologic/Lymphatic: Hematologic/Lymphatic: Reports no additional hematologic/lymphatic complaints Allergic/Immunologic: Allergic/Immunologic: Reports no additional allergic/immunologic complaints PMFSH Past Medical History Attestation statement: The following information was validated with the patient. Source: old records reviewed and nursing notes reviewed Medical History RAVINDRA (obstructive sleep apnea) Abscess Hypertension Surgical History H/O colonoscopy H/O esophagogastroduodenoscopy History of corneal transplant Social History Social History Alcohol intake: unknown Patient Tobacco Use Status: Never used Tobacco Advance Directives: No Advance Directives Information Provided: No Physical Exam Vital Signs: Vital Signs: Last Vital Signs Temp 98.2 F 04/18/23 15:50 Pulse 60 04/18/23 15:50 Resp 17 04/18/23 15:50 BP 149/91 H 04/18/23 15:50 Pulse Ox 98 04/18/23 15:50 O2 Del Method Room Air 04/18/23 15:50 BMI result Body Mass Index 33.7 Const: General: cooperative, no acute distress, alert and awake Nutritional Appearance: well nourished Orientation/consciousness: patient oriented x3 Limitations: no limitations HEENT: Head: Yes normal to inspection and Yes atraumatic Ears: hearing grossly normal bilaterally and external ears normal General nose exam: Normal external nose present, no nasal discharge noted and no epistaxis Face and sinus: Yes normal facial exam, No abrasion and No laceration Mouth: Normal oral and palatal mucosa present, no drooling and no muffled voice Eyes: General: appearance normal, both eyes and all related structures Periorbital: periorbital findings normal Eyelids: Yes eyelids normal Conjunctivae: conjunctivae normal Pupils: Equal, round and reactive pupils present EOM: EOMs intact bilaterally Neck: Neck: Yes normal visual inspection, Yes full ROM and Yes no lymphadenopathy Chest: Chest palpation & inspection: normal inspection of the chest Resp: Effort & Inspection: normal respiratory effort and able to speak in complete sentences GI: Inspection: Yes normal to inspection Neuro: General: patient oriented x3 and moves all extremities Cranial nerves: Yes Equal, round and reactive pupils present Cognition (Neuro): normal cognition Motor exam (neuro): 5/5 motor strength present throughout Sensory Exam: Normal double simultaneous stimulation for sensation Coordination: [id number] test normal Extrem: General: Yes normal to inspection, Yes full ROM and Yes capillary refill normal Psych: Appearance: grossly normal Mental Status: mental status grossly normal Affect: normal affect Attitude: cooperative Thought process: Normal thought process present Thought content: Normal thought content present Insight: Good insight present (Psych) Medical Decision Making Medical Decision Making MDM Narrative: Patient is a 47 year old assigned male at with a history of BPH presenting to the emergency department today with left forearm and wrist pain. Patient's physical exam was unremarkable. I answered all questions asked by the patient. Patient's left forearm x-ray showed no acute process.I explained my physical exam findings and test results to the patient. I stressed the importance of the patient taking his medication as prescribed. I stressed the importance of the patient following up with his primary care provider. I stressed the importance of the patient returning to the emergency department immediately if his symptoms were to worsen or if he were to develop any dizziness, shortness of breath, difficulty breathing, chest pain, blurry vision, loss of vision, nausea, vomiting, abdominal pain, fever, chills, back pain, or any other complaints. Patient verbalized agreement and understanding with this treatment plan and discharge. Differential Diagnosis Differential Diagnoses: The differential diagnosis associated with the presentation includes Left forearm pain Left wrist pain Wrist fracture Forearm fracture Admission/Observation Consideration of admission/observation: Escalation of care including admission/observation considered Patient would have been admitted to the hospital had his work up had any findings where hospital admission was appropriate and his clinical presentation warranted hospital admission. Independent Interpretation I performed an independent interpretation of an: Plain X-Ray Interpretation: My interpretation is in agreement with the radiologist's impression of this imaging study. EXAMINATION: XR FOREARM, LEFT CLINICAL INFORMATION: Pain, injury COMPARISON: None available. TECHNIQUE: AP and lateral views of the left forearm were obtained. FINDINGS: The bones and soft tissues are normal. No fracture. Imaged portions of the elbow and wrist are unremarkable. Punctate radiopaque foreign body in the soft tissues of the mid forearm. XR/XR forearm LT 2V IMPRESSION: 1. No acute fracture. 2. Punctate radiopaque foreign body in the soft tissues of the mid forearm. Dictated By: Laina Toussaint MD Signed By: Electronically signed by Laina Toussaint MD 04/18/23 [id number] Radiology Impression Discussion of test interpretation with radiology: I have reviewed the radiologist's reading. Discharge Plan Discharge Clinical Impression: Acute wrist pain Patient Disposition: Home, Self-Care Instructions: Wrist Injury (ED) Additional Instructions: Follow up with your primary care provider. Return to the emergency department immediately if your symptoms worsen or if you develop any dizziness, shortness of breath, difficulty breathing, chest pain, blurry vision, loss of vision, nausea, vomiting, abdominal pain, fever, chills, back pain, or any other complaints. Edward un seguimiento con betancourt proveedor de atenci?n primaria. Regrese al departamento de emergencias inmediatamente si stacey s?ntomas empeoran o si presenta mareos, dificultad para respirar, dificultad para respirar, dolor en el pecho, visi?n borrosa, p?rdida de la visi?n, n?useas, v?mitos, dolor abdominal, fiebre, escalofr?os, dolor de espalda o cualquier otras quejas. Prescriptions: No Action ibuprofen 800 mg tablet 800 mg PO Q8H PRN (Reason: pain) Qty: 14 0RF acetaminophen [Tylenol Extra Strength] 500 mg tablet 1,000 mg PO QID PRN (Reason: fever or pain) Qty: 14 0RF doxycycline monohydrate 100 mg capsule 100 mg PO BID 14 Days Qty: 28 0RF cephalexin 500 mg capsule 500 mg PO BID 14 Days Qty: 28 0RF oxycodone 5 mg tablet 5 mg PO BID PRN (Reason: pain) Qty: 10 0RF lidocaine 4 % adhesive patch,medicated 1 patch topical DAILY PRN (Reason: pain) Qty: 10 0RF Rx Instructions: may leave on for up to 12 hrs diazepam [Valium] 5 mg tablet 5 mg PO TID PRN (Reason: muscle spasm) Qty: 10 0RF cephalexin 500 mg capsule 500 mg PO QID 7 Days Qty: 28 0RF doxycycline hyclate 100 mg capsule 100 mg PO BID 7 Days Qty: 14 0RF prednisone 20 mg tablet 60 mg PO DAILY 4 Days Qty: 12 0RF amoxicillin-pot clavulanate 875-125 mg tablet 1 tab PO BID Qty: 14 0RF naproxen 500 mg tablet 500 mg PO BID PRN (Reason: pain) 30 Days Qty: 60 2RF tadalafil 5 mg tablet 5 mg PO DAILY 90 Days Qty: 90 1RF Referrals: Karolina Adames, [employer] [Primary Care Provider] - Stand Alone Forms: Work/School Release Interventions: ED Discharge Assessment Last Done: 04/18/23 17:18 Discharge Date/Time: 04/18/23 17:18 Print Language: Bermudian
== END 2023-04-18 17:18 | disposition home or self-care (01) ==
PROVIDERS: Emergency Provider Emergency Medicine; PCP Nurse Practitioner Primary Care
DX: M25.532 Pain in left wrist (principal)
CPT/HCPCS: 73090; 99282; 99283

== ENCOUNTER 2023-04-20 13:37 | Outpatient (REF) | payer MEDICAID, SELFPAY ==
--- NOTE | ~2023-04-20 | XR_ITS ---
EXAMINATION: 1. Left forearm. 2. Left wrist. CLINICAL INFORMATION: PT STATES HE FELL SUNDAY INJURING HIS LEFT WRIST, PAIN IS LATERAL.ORDER STATES DISTAL RADIAL PAIN AND TTP S/P TRAUMA R/O FRACTURE. COMPARISON: Left forearm April 18, 2023 TECHNIQUE: 1. Left forearm. 2 views 2. Left wrist. 4 views FINDINGS: 1. Left forearm. Redemonstration of the small opaque foreign body in the soft tissues at the volar side of the mid right forearm. No fracture. No dislocation of radius or ulna. 2. Left wrist. No fracture. No dislocation. Joint spaces are normal. XR/XR wrist LT min 3V IMPRESSION: 1. Left forearm. No acute abnormality. 2. Left wrist. No acute abnormality. No change since prior study April 18, 2023. Small opaque foreign body in the volar side of the forearm.
--- NOTE | ~2023-04-20 | XR_ITS ---
EXAMINATION: 1. Left forearm. 2. Left wrist. CLINICAL INFORMATION: PT STATES HE FELL SUNDAY INJURING HIS LEFT WRIST, PAIN IS LATERAL.ORDER STATES DISTAL RADIAL PAIN AND TTP S/P TRAUMA R/O FRACTURE. COMPARISON: Left forearm April 18, 2023 TECHNIQUE: 1. Left forearm. 2 views 2. Left wrist. 4 views FINDINGS: 1. Left forearm. Redemonstration of the small opaque foreign body in the soft tissues at the volar side of the mid right forearm. No fracture. No dislocation of radius or ulna. 2. Left wrist. No fracture. No dislocation. Joint spaces are normal. XR/XR forearm LT 2V IMPRESSION: 1. Left forearm. No acute abnormality. 2. Left wrist. No acute abnormality. No change since prior study April 18, 2023. Small opaque foreign body in the volar side of the forearm.
== END 2023-04-20 13:38 | disposition home or self-care (01) ==
LOC: HO.HHCX 13:37
PROVIDERS: Visit Provider Family Medicine
DX: M25.532 Pain in left wrist (principal)
CPT/HCPCS: 73090; 73110

== ENCOUNTER 2023-06-05 10:07 | Outpatient (AMB) | payer MEDICAID, SELFPAY ==
--- NOTE | 2023-06-05 10:10 | MHC.OFFVIS ---
Vital Signs 06/05/23 10:11 Height 5 ft 11 in Weight 242 lb BMI 33.7 Handedness Right Intake Visit Reasons: New Prob - left wrist pain Intake Note: Oscar is a 47 year old right hand dominant male who presents today for a evaluation of his left wrist pain. X rays done on 04/20/23. Patient reports having a old fracture on 04/20/23. He states that he was going up the stairs he slipped and hit his left hand on the railing. Currently is having some discomfort, but no pain. Patient expresses that he had a injection in his right shoulder with [facility] in 01/16/22, he want to know if he can repeat it since it gave him about 1 year + of relief. Allergies No Known Allergies [No Known Allergies*] Allergy (Verified 06/05/23 10:14) HPI HPI New Prob - left wrist pain: Details: 47-year-old right hand dominant male who presents in the office today, as a new patient, for an evaluation of left wrist pain. Patient presented to the ED on status post falling from a ladder and hitting his left forearm/wrist. X-rays were obtained. While in the office today the patient reports an old fracture that occurred on 04/20/2023 when he was going up the stairs, slipped and hit his left hand on the railing. He denies any pain but reports mild discomfort. Patient reports a cortisone injection in the right shoulder with Dr. Cabrales on 01/16/2022 that gave him over a year of relief. He is interested in repeating this today. [facility] Medical History RAVINDRA (obstructive sleep apnea) Abscess Hypertension Surgical History H/O colonoscopy H/O esophagogastroduodenoscopy History of corneal transplant Social History (Updated 06/05/23 @ 10:19 by Tish Reyes) Alcohol intake: unknown Patient Tobacco Use Status: Never used Tobacco Current occupational status: employed Current occupation: [employer]/ right hand dominant Review of Systems Const All systems reviewed & are unremarkable except as noted in HPI and below Physical Exam Vital Signs: BMI result Body Mass Index 33.7 Const General: cooperative and no acute distress Orientation/consciousness: patient oriented x3 Resp Effort & Inspection: normal respiratory effort and able to speak in complete sentences Cardio Peripheral pulses: Peripheral pulses 2+ throughout Skin General skin exam: no rashes or lesions noted Neuro General: patient oriented x3 Extrem Other: Left wrist: Normal to inspection. No ecchymosis, erythema, or edema. Mild tenderness to palpation over the lateral aspect of the distal radius. Able to perform full finger flexion, extension, abduction, adduction, finger cross, okay sign, and thumbs up without deficit. Able to make a closed fist. Negative Flower?s. Sensation intact. Capillary refill is brisk. Radial pulse intact. Assessment & Plan Assessment & Plan (1) Left wrist sprain: Code(s): S63.502A - Unspecified sprain of left wrist, initial encounter Category: Medical Qualifiers: Encounter type: initial encounter Qualified Code(s): S63.502A - Unspecified sprain of left wrist, initial encounter Plan Mr. Youngblood is a 47-year-old right hand dominant male who presents in the office today, as a new patient, for an evaluation of left wrist pain. Patient presented to the ED on status post falling from a ladder and hitting his left forearm/wrist. X-rays were obtained. While in the office today the patient reports an old fracture that occurred on 04/20/2023 when he was going up the stairs, slipped and hit his left hand on the railing. He denies any pain but reports mild discomfort. Patient reports a cortisone injection in the right shoulder with Dr. Cabrales on 01/16/2022 that gave him over a year of relief. He is interested in repeating this today. At this time there are not many options for further treatment of the left wrist sprain. I do not recommend wearing the wrist splint due to increasing the risk of stiffness. He does report his pain has been progressively resolving. His x-rays from 04/20/2023 were negative for any acute fracture or dislocation but did have an incidental finding of a small foreign body on the volar aspect of the forearm. Follow up will be PRN, or sooner if needed. Of note: He does request a right shoulder evaluation which is scheduled upon leaving the office today. X-rays of the left forearm/wrist, obtained on 04/20/2023, revealed: 1. Left forearm. Redemonstration of the small opaque foreign body in the soft tissues at the volar side of the mid right forearm. No fracture. No dislocation of radius or ulna. 2. Left wrist. No fracture. No dislocation. Joint spaces are normal. Patient Instructions: Scribed by Aline Yu medical records auditor, for Lalamarilyn Dawkins PA-C on 06/05/2023 at 10:09 am, EST. Coding Level of Care Code Est Pt Level 3 (08175) Diagnoses Sprain of left wrist, initial encounter S63.502A Encounter type: initial encounter
[2023-06-05 10:11] VITALS: BMI 33.7
== END 2023-06-05 10:49 | disposition home or self-care (01) ==
PROVIDERS: PCP Nurse Practitioner Primary Care; Visit Provider Physician Assistant
DX: S63.502A Unspecified sprain of left wrist, initial encounter (principal)
CPT/HCPCS: 99213

== ENCOUNTER → 2023-06-05 10:07 | Outpatient (BNVA) | payer MEDICAID, SELFPAY | PROVIDERS: PCP Nurse Practitioner Primary Care; Visit Provider Physician Assistant | DX: S63.502A Unspecified sprain of left wrist, initial encounter (principal) | CPT/HCPCS: 99212 ==

== ENCOUNTER 2023-06-23 08:01 | Emergency (ER) | payer MEDICAID, SELFPAY ==
--- NOTE | ~2023-06-23 | CT_ITS ---
EXAMINATION: CT HEAD WITHOUT CONTRAST CLINICAL INFORMATION: Right facial numbness COMPARISON: None available. TECHNIQUE: Contiguous axial imaging was performed from the skull base to vertex without intravenous administration of contrast. This CT examination was performed using dose optimization techniques as appropriate, variously including the following: *Automated exposure control *Adjustment of mA and/or kV according to patient size (this includes techniques or standardized protocols for targeted exams where dose is matched to indication/reason for exam; i.e. extremities or head) *Use of iterative reconstruction technique DLP: 760 mGy-cm FINDINGS: There is no evidence of acute intracranial hemorrhage or territorial infarction. Calcification along the falx cerebri greatest along its anterior margin measuring 2.1 x 1.0 cm, which may reflect dural calcification though a calcified meningioma is not excluded. No abnormal mass effect or midline shift is seen. Head to white matter differentiation is well preserved. No extra-axial fluid collections are identified. The ventricles are normal in size. There is no abnormal attenuation within the brain parenchyma. The osseous structures and soft tissues are normal. Slight mucoperiosteal thickening of the bilateral maxillary sinuses. The mastoid air cells and visualized portions of the paranasal sinuses are well aerated. CT/CT head/brain wo IV con IMPRESSION: 1. No acute intracranial pathology. 2. Calcification along the falx cerebri greatest along its anterior margin measuring 2.1 x 1.0 cm, which may reflect dural calcification though a calcified meningioma is not excluded.
[2023-06-23 08:10] VITALS: BP 140/86; PULSE 75; RESP 19; TEMP 36.6; O2SAT 98; BMI 33.2
--- NOTE | 2023-06-23 09:13 | ECG_ITS ---
Test Reason : htn Blood Pressure : / mmHG Vent. Rate : 064 BPM Atrial Rate : 064 BPM P-R Int : 164 ms QRS Dur : 090 ms QT Int : 414 ms P-R-T Axes : 063 -09 004 degrees QTc Int : 427 ms Normal sinus rhythm with sinus arrhythmia Normal ECG When compared with ECG of 23-FEB-2020 01:28, No significant change was found Referred By: Lonnie Resendiz Electronically Signed By:NENO CHAN MD
--- NOTE | 2023-06-23 09:28 | ED.GENADULT ---
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 Resendiz HPI narrative: 47-year-old male history of hypertension taking losartan 50 mg daily for high blood pressure had high blood pressure this morning of 160/110, patient was feeling numbness on the right side of the face with ringing in the right ear since yesterday, patient stated that his symptoms resolved, no slurred speech, no weakness, no numbness. Patient also stated for the last few days he notice involuntary movement of the right thumb intermittently with no pain. Related Data Home Medications ?Medication ?Instructions ?Recorded ?Confirmed acetaminophen 650 mg 650 mg PO Q8H PRN pain 06/05/23 tablet,extended release cyclobenzaprine 10 mg tablet 10 mg PO TID 06/05/23 diclofenac sodium 1 % topical gel 2 g topical DAILY PRN pain 06/05/23 hydroxyzine pamoate 25 mg capsule 25 mg PO QAM 06/05/23 levothyroxine 25 mcg tablet 25 mcg PO DAILY 06/05/23 meclizine 25 mg tablet 25 mg PO BID PRN dizziness 06/05/23 oseltamivir 75 mg capsule 75 mg PO BID 06/05/23 sertraline 50 mg tablet 50 mg PO QAM 06/05/23 terbinafine HCl 250 mg tablet 250 mg PO QAM 06/05/23 tramadol 50 mg tablet 50 mg PO Q8H PRN severe pain 06/05/23 trazodone 100 mg tablet 100 mg PO BEDTIME 06/05/23 Previous Rx's ?Medication ?Instructions ?Recorded naproxen 500 mg tablet 500 mg PO BID PRN pain 30 days #60 01/16/22 tabs Allergies Allergy/AdvReac Type Severity Reaction Status Date / Time No Known Allergies Allergy Verified 06/23/23 08:12 [No Known Allergies*] Review of Systems Review of Systems: All other systems are reviewed and are negative Constitutional: Reports as per HPI and Reports no additional constitutional complaints Eyes: Reports as per HPI and Reports no additional eye complaints Reports system reviewed and no additional complaints, except as documented Cardiovascular: Reports as per HPI and Reports no additional cardiovascular complaints Respiratory: Reports as per HPI and Reports no additional respiratory complaints Gastrointestinal: Reports as per HPI and Reports no additional gastrointestinal complaints Genitourinary: Reports no additional female genitourinary complaints Musculoskeletal: Reports no additional musculoskeletal complaints Skin/Breast: Reports system reviewed and no additional complaints, except as docu Psychiatric: Reports no additional psychiatric complaints Endocrine: Reports no additional endocrine complaints Hematologic/Lymphatic: Reports no additional hematologic/lymphatic complaints Allergic/Immunologic: Reports no additional allergic/immunologic complaints Reports system reviewed and no additional complaints, except as documented and Reports Abnormal speech present [facility] Past Medical History Medical History RAVINDRA (obstructive sleep apnea) Abscess Hypertension Surgical History H/O colonoscopy H/O esophagogastroduodenoscopy History of corneal transplant Social History Social History Alcohol intake: unknown Patient Tobacco Use Status: Never used Tobacco Advance Directives: No Advance Directives Information Provided: No Current occupational status: employed 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 Blood pressure elevated. Heart rate normal. Respiratory rate normal. Temperature normal. Oxygen saturation normal. Appearance: Alert. Oriented X3. No acute distress. Head: Normal external exam. Normocephalic. Atraumatic. No Mejía signs noted. No raccoon eyes noted Eyes: PERRLA. EOMI. Conjunctiva and sclera normal. Eyelids normal. ENT: TM's Normal. Pharynx normal. Uvula midline. Moist mucous membranes. No trismus noted. No drooling noted. No muffled voice noted. Neck: Normal inspection. Neck supple. FROM. No adenopathy. Thyroid Normal. No meningeal signs. No neck mass noted. CVS: Normal heart rate and rhythm. Heart sound normal. No murmurs noted. Pulses normal throughout. Respiratory: No respiratory distress. Painless inspiration. Breath sounds normal. No wheezes/rales/rhonchi noted. Chest nontender. No accessory muscle usage noted or decreased air movement noted. Abdomen: Soft and nontender. Bowel sounds normal in all 4 quadrants. No distention noted. No organomegaly noted. No visible injury noted. Back: No CVA tenderness. Full range of motion noted. Skin: Skin warm and dry. Normal skin color. Normal skin turgor. No rashes/lesions/lacerations noted. Extremities: No lower extremity edema. Extremities exhibit normal range of motion. Extremities nontender. Neuro: Oriented X 3. Cranial nerve exam: II-XII are grossly intact No motor deficit. No sensory deficit. Reflexes normal. NIH Stroke Scale Time: 09:33 Level of Consciousness: Alert Level of Consciousness Questions: Answers both questions correctly Level of Consciousness Commands: Performs both tasks correctly Best Gaze: Normal Visual: No visual loss Facial Palsy: Normal Motor Arm (Right): No drift Motor Arm (Left): No drift Motor Leg (Right): No drift Motor Leg (Left): No drift Limb Ataxia: Absent Sensory: Normal Best Language: No aphasia Dysarthia: Normal Extinction and Inattention: No abnormality Score: 0 Course Reevaluation(s) Reevaluation #1: Patient feels better, blood pressure slightly elevated but needed no intervention for control, repeat neuro exam is unremarkable NIH is 0 no CP, no SOB. Patient was instructed to follow-up with PCP for blood pressure management, right-sided cheek numbness that it feels less numb now, patient has symmetric facial exam with no droop. Time: 14:09 Medical Decision Making Differential Diagnosis Differential Diagnoses: The differential diagnosis associated with the presentation includes (Intracranial bleed, hypertensive urgency, hypertensive emergency, electrolyte derangement, ACS, severe anemia.) Admission/Observation Consideration of admission/observation: Escalation of care including admission/observation considered Lab Data MDM Lab Attestation statement: I reviewed the patient's lab results. 06/23/23 09:28 06/23/23 09:28 Labs: Lab Results 06/23/23 Range/Units 09:28 WBC 9.8 (4.8-10.8) X10*3/uL RBC 4.95 (4.60-5.80) X10*6/uL Hgb 15.2 (14.0-18.0) g/dl Hct 43.1 (42.0-52.0) % MCV 87.1 (80.0-98.0) fL MCH 30.7 (27.0-33.0) pg MCHC 35.3 (31.0-36.0) g/dl RDW 13.0 (11.0-16.0) % Plt Count 360 (160-400) X10*3/uL MPV 9.7 (9.4-12.4) fL Immature Gran % (Auto) 0.6 H (0.0-0.4) % Neut % (Auto) 57.4 (45-73) % Lymph % (Auto) 27.8 (20-40) % [place] % (Auto) 10.5 (2-11) % Eos % (Auto) 2.6 (0-4) % Baso % (Auto) 1.1 (0-2) % Lymph # (Auto) 2.7 (1.2-4.9) X10*3/uL [place] # (Auto) 1.0 (0.1-1.2) X10*3/uL Eos # (Auto) 0.3 (0.0-0.4) X10*3/uL Baso # (Auto) 0.1 (0.0-0.2) X10*3/uL Abs Immat Gran (auto) 0.06 H (0.00-0.03) X10*3/uL Absolute Neuts (auto) 5.6 (2.0-8.3) x10*3/uL Absolute Nucleated RBC 0.000 (0.0-0.012) X10*3/uL Nucleated RBC % (auto) 0.0 (0.0-0.2) /100WBC Sodium 140 (135-145) mmol/L Potassium 3.3 (3.3-5.1) mmol/L Chloride 103 (96-108) mmol/L Carbon Dioxide 25 (22-29) mmol/L Anion Gap 15 (12-20) BUN 20 H (9-16) mg/dL Creatinine 0.89 (0.5-1.4) mg/dL Estim Creat Clear Calc 126.8 Estimated GFR > 60 Random Glucose 103 (60-115) mg/dL Calcium 9.9 (8.4-10.2) mg/dL Total Bilirubin 0.6 (0.0-1.0) mg/dL Direct Bilirubin 0.2 (0.0-0.5) mg/dL AST 54 H (5-37) U/L ALT 58 H (0-40) U/L Alkaline Phosphatase 92 (39-117) U/L Troponin I High Sens < 2.7 (<3.5-35.0) ng/L Total Protein 8.1 H (6.5-8.0) g/dL Albumin 4.7 (3.5-5.0) g/dL Lipase 11 (8-78) U/L Independent Interpretation I performed an independent interpretation of an: CT Scan (Head: No acute intracranial pathology.) Radiology Impression Discussion of test interpretation with radiology: I have reviewed the radiologist's reading. (1. No acute intracranial pathology. 2. Calcification along the falx cerebri greatest along its anterior margin measuring 2.1 x 1.0 cm, which may reflect dural calcification though a calcified meningioma is not excluded. ) Discharge Plan Discharge Clinical Impression: Hypertension, Numbness and tingling of right side of face Patient Disposition: Home, Self-Care Instructions: Hypertension (ED) Prescriptions: No Action naproxen 500 mg tablet 500 mg PO BID PRN (Reason: pain) 30 Days Qty: 60 2RF tramadol 50 mg tablet 50 mg PO Q8H PRN (Reason: severe pain) diclofenac sodium 1 % gel 2 g topical DAILY PRN (Reason: pain) hydroxyzine pamoate 25 mg capsule 25 mg PO QAM trazodone 100 mg tablet 100 mg PO BEDTIME sertraline 50 mg tablet 50 mg PO QAM acetaminophen 650 mg tablet extended release 650 mg PO Q8H PRN (Reason: pain) meclizine 25 mg tablet 25 mg PO BID PRN (Reason: dizziness) cyclobenzaprine 10 mg tablet 10 mg PO TID oseltamivir 75 mg capsule 75 mg PO BID levothyroxine 25 mcg tablet 25 mcg PO DAILY terbinafine HCl 250 mg tablet 250 mg PO QAM Referrals: Karolina Adames FURS SALESPERSON [Primary Care Provider] - Print Language: Yoruba
[2023-06-23 09:35] LABS: MANUAL DIFF FLAG NO
[2023-06-23 09:37] LABS: Basophils Absolute Auto 0.1 X10*3/uL (0.0-0.2); Basophils Percent Auto 1.1 % (0-2); Eosinophils Absolute Auto 0.3 X10*3/uL (0.0-0.4); Eosinophils Percent Auto 2.6 % (0-4); Hematocrit 43.1 % (42.0-52.0); Hemoglobin 15.2 g/dl (14.0-18.0); Imm Gran Abs Auto 0.06 X10*3/uL (0.00-0.03); Imm Gran Pct Auto 0.6 % (0.0-0.4); Lymphocytes Absolute Auto 2.7 X10*3/uL (1.2-4.9); Lymphocytes Percent Auto 27.8 % (20-40); Mean Corpuscular HGB Conc 35.3 g/dl (31.0-36.0); Mean Corpuscular Hemoglobin 30.7 pg (27.0-33.0); Mean Corpuscular Volume 87.1 fL (80.0-98.0); Mean Platelet Volume 9.7 fL (9.4-12.4); Monocytes Percent Auto 10.5 % (2-11); Neutrophils Absolute Auto 5.6 x10*3/uL (2.0-8.3); Neutrophils Percent Auto 57.4 % (45-73); Platelet Count 360 X10*3/uL (160-400); Red Blood Count 4.95 X10*6/uL (4.60-5.80); White Blood Count 9.8 X10*3/uL (4.8-10.8)
[2023-06-23 09:57] LABS: Albumin Level 4.7 g/dL (3.5-5.0); Anion Gap 15 (12-20); Calcium 9.9 mg/dL (8.4-10.2); Carbon Dioxide 25 mmol/L (22-29); Chloride 103 mmol/L (96-108); Potassium 3.3 mmol/L (3.3-5.1); Sodium 140 mmol/L (135-145); Total Protein 8.1 g/dL (6.5-8.0)
[2023-06-23 10:04] LABS: Alanine Aminotransferase 58 U/L (0-40); Alkaline Phosphatase 92 U/L (39-117); Aspartate Amino Transferase 54 U/L (5-37); Bilirubin Direct 0.2 mg/dL (0.0-0.5); Bilirubin Total 0.6 mg/dL (0.0-1.0); Blood Urea Nitrogen 20 mg/dL (9-16); Creatinine Clr Calc Pharmacy 126.8; Estimated Glomerular Filt Rate > 60; Glucose Random 103 mg/dL (60-115); Lipase 11 U/L (8-78); Troponin-I High Sensitivity < 2.7 ng/L (<3.5-35.0)
[2023-06-23 10:48] VITALS: BP 140/91; PULSE 62; RESP 16; O2SAT 99
[2023-06-23 15:48] VITALS: BP 140/91; PULSE 62; RESP 16; TEMP -17.7; TEMP 0; O2SAT 99
== END 2023-06-23 15:49 | disposition home or self-care (01) ==
PROVIDERS: Emergency Provider Emergency Medicine; PCP Nurse Practitioner Primary Care
DX: I10 Essential (primary) hypertension (principal); R20.0 Anesthesia of skin
CPT/HCPCS: 36415; 70450; 80048; 80076; 83690; 84484; 85025; 93005; 99284

== ENCOUNTER → 2023-06-23 09:13 | Outpatient (BNV) | payer MEDICAID, SELFPAY | PROVIDERS: Emergency Provider Emergency Medicine; PCP Nurse Practitioner Primary Care; Visit Provider Internal Medicine Cardiovascular Disease | DX: I49.9 Cardiac arrhythmia, unspecified (principal) | CPT/HCPCS: 93010 ==

== ENCOUNTER 2023-06-26 10:54 | Outpatient (AMB) | payer MEDICAID, SELFPAY ==
--- NOTE | 2023-06-26 11:34 | A.OFFVIS_ITS ---
Vital Signs 06/26/23 11:35 Height 5 ft 11 in Weight 238 lb BMI 33.2 Handedness Ambidextrous Intake Visit Reasons: OV-Right Shoulder Joint Pain Intake Note: Oscar is a 46 year old right hand dominant male who presents today for a follow up of his right shoulder pain, last injection 01/16/22. Patient reports his last injection lasted him about 2 years and about 2 months ago his pain started to come back. 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 Allergies No Known Allergies [No Known Allergies*] Allergy (Verified 06/26/23 11:36) HPI HPI OV-Right Shoulder Joint Pain: Details: 47-year-old right hand dominant male, who is Ukrainian speaking, presents in the office today for an evaluation of right shoulder pain. The patient was seen in the office last on 01/16/[address] Cabrales, who then received a steroid injection in the right shoulder. While in the office today the patient reports his last injection gave him relief for about 2 years. He states about 2 months ago, in 04/2023, his pain began to return. 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 He states his arm went out further than normal and this caused an increase in pain. 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 No ecchymosis, erythema, or edema. Tenderness to palpation along the bicep tendon attachment. Full shoulder ROM in all planes. Pain with cross-body reach. 3/5 strength with empty can. Negative drop arm. 4/5 strength with belly lift off. NVI. Office Procedures Joint Injection/Drain Joint Injection/Drain Primary Site: left shoulder Prep: site was prepped using aseptic technique, ethochloride spray was applied and injection warnings given Injected: 80 mg of, DepoMedrol, with 8 mL of (2% plain lido ) and in the subcromial space Approach Used: posterolateral Procedure: The patient tolerated the procedure well, but had some pain with the injection and there was some relief with the local anesthesia Coding 47704 - Large joint Procedure code (CPT) selection complete Assessment & Plan Assessment & Plan (1) Painful arc syndrome of right shoulder: Code(s): M75.101 - Unspecified rotator cuff tear or rupture of right shoulder, not specified as traumatic Category: Medical Plan Mr. Youngblood is a 47-year-old right hand dominant male, who is Ukrainian speaking, presents in the office today for an evaluation of right shoulder pain. The patient was seen in the office last on 01/16/[address] Cabrales, who then received a steroid injection in the right shoulder. While in the office today the patient reports his last injection gave him relief for about 2 years. He states about 2 months ago, in 04/2023, his pain began to return. 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 He states his arm went out further than normal and this caused an increase in pain. The patient was offered a cortisone injection in the right shoulder with 80 mg of DepoMedrol. The patient was explained the risk, benefits, and alternatives to receiving this injection. After receiving consent for the injection, the patient had the procedure done while in the office today. The patient tolerated the procedure well with no complications. Follow up will be PRN, or sooner if needed. X-rays of the right shoulder which were obtained while in the office today and were reviewed by me, Lala Dawkins PA-C, revealed no acute fracture or dislocation. Orders: Orders XR shoulder RT min 2V Today M25.519 - Pain in unspecified shoulder Patient Instructions: Scribed by Aline Yu medical office scheduler, for Lala Dawkins PA-C on 06/26/2023 at 10:58 am, EST. Coding Level of Care Code Est Pt Level 3 (41465) Diagnoses Painful arc syndrome of right shoulder M75.101 CPT Codes Coding - 67771 Large joint: 27564 - Large joint ([id number])
[2023-06-26 11:35] VITALS: BMI 33.2
== END 2023-06-26 12:02 | disposition home or self-care (01) ==
PROVIDERS: PCP Nurse Practitioner Primary Care; Visit Provider Physician Assistant
DX: M75.101 Unspecified rotator cuff tear or rupture of right shoulder, not specified as traumatic (principal)
CPT/HCPCS: 20610; 99213

== ENCOUNTER 2023-06-26 15:32 | Outpatient (REF) | payer MEDICAID, SELFPAY ==
--- NOTE | ~2023-06-26 | XR_ITS ---
EXAMINATION: XR SHOULDER, RIGHT CLINICAL INFORMATION: Pain in unspecified shoulder. COMPARISON: 12/27/2021. TECHNIQUE: Three views of the right shoulder. FINDINGS: Degenerative changes again seen in the acromioclavicular joint with joint space narrowing and hypertrophic change. Glenohumeral alignment is preserved. No abnormal soft tissue calcifications identified adjacent to the humeral head. Mild spurring along the inferior aspect of the glenoid. XR/XR shoulder RT min 2V IMPRESSION: Moderate degenerative changes acromioclavicular joint.
== END 2023-06-26 15:33 | disposition home or self-care (01) ==
LOC: HO.HOSX 15:32
PROVIDERS: Visit Provider Physician Assistant
DX: M75.101 Unspecified rotator cuff tear or rupture of right shoulder, not specified as traumatic (principal); M25.511 Pain in right shoulder
CPT/HCPCS: 20610; 73030; 99212; J1010

== ENCOUNTER 2023-09-25 09:09 | Outpatient (REF) | payer MEDICAID, SELFPAY ==
--- NOTE | ~2023-09-25 | XR_ITS ---
EXAMINATION: XR HAND, RIGHT CLINICAL INFORMATION: Injury. Swelling. COMPARISON: None available. TECHNIQUE: Four views of the right hand. FINDINGS: There is soft tissue swelling around the fifth PIP. There is narrowing of the fifth PIP. There are proliferative changes associated with the fifth PIP greatest dorsally. There is a displaced intra-articular fracture of the distal phalanx. This appears to involve approximately one third of the articular surface and there is some retraction and rotation. Slight flexion deformity at the fifth MTP. XR/XR hand RT min 3V IMPRESSION: There is a displaced intra-articular fracture of the distal phalanx of the fifth digit. Electronically signed by: Derian Chi MD 09/30/2023 08:56 PM EDT RP
== END 2023-09-25 09:10 | disposition home or self-care (01) ==
LOC: HO.HHCX 09:09
PROVIDERS: Visit Provider Nurse Practitioner Family
DX: S69.91XA Unspecified injury of right wrist, hand and finger(s), initial encounter (principal); R60.0 Localized edema
CPT/HCPCS: 73130

== ENCOUNTER 2023-09-28 17:48 | Emergency (ER) | payer OTHER, MEDICAID, SELFPAY ==
--- NOTE | ~2023-09-28 | XR_ITS ---
EXAMINATION: XR FINGER, RIGHT CLINICAL INFORMATION: Fifth digit injury COMPARISON: None available. TECHNIQUE: Three views of the right small finger. FINDINGS: There is a displaced fracture at the base of the fifth digit proximal phalanx with associated soft tissue swelling. No additional fractures visualized. XR/XR finger RT min 2V IMPRESSION: Displaced fracture at the base of the fifth digit proximal phalanx. Electronically signed by: Rufino Figueredo MD 09/28/2023 08:53 PM EDT
[2023-09-28 17:52] VITALS: BP 140/88; PULSE 67; RESP 16; TEMP 36.8; O2SAT 96; BMI 31.2
--- NOTE | 2023-09-28 17:53 | ED.UPPEXIN ---
HPI - Extremity Injury (Upper) General Chief Complaint: Extremity Injury, Upper Stated Complaint: finger pain s/p work inj Time Seen by Provider: 09/28/23 22:39 Source: patient Mode of arrival: ambulatory Limitations: language barrier (Stateless speaking only, graphite pan drier tender used) History of Present Illness ED Provider: Dr. Rodolfo Renae HPI narrative: 47-year-old male with a history of hypertension who presents emergency department for evaluation of pain in his right 5th finger and difficulty moving his distal phalanx. 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 He states that 3 weeks prior he had a work-related injury. 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 Patient states he had immediate pain in the finger and was unable to straighten the finger. He states he followed up at [facility] and had an x-ray. It is unclear to me if he was told that he had a fracture but he was placed in a splint. Patient states that he is following up with [facility] next Sunday10/03/2023. He states he is having difficulty working secondary to the pain in his finger therefore he came to the emergency department for evaluation. Related Data Home Medications ?Medication ?Instructions ?Recorded ?Confirmed acetaminophen 650 mg 650 mg PO Q8H PRN pain 06/05/23 tablet,extended release cyclobenzaprine 10 mg tablet 10 mg PO TID 06/05/23 diclofenac sodium 1 % topical gel 2 g topical DAILY PRN pain 06/05/23 hydroxyzine pamoate 25 mg capsule 25 mg PO QAM 06/05/23 levothyroxine 25 mcg tablet 25 mcg PO DAILY 06/05/23 meclizine 25 mg tablet 25 mg PO BID PRN dizziness 06/05/23 oseltamivir 75 mg capsule 75 mg PO BID 06/05/23 sertraline 50 mg tablet 50 mg PO QAM 06/05/23 terbinafine HCl 250 mg tablet 250 mg PO QAM 06/05/23 tramadol 50 mg tablet 50 mg PO Q8H PRN severe pain 06/05/23 trazodone 100 mg tablet 100 mg PO BEDTIME 06/05/23 Previous Rx's ?Medication ?Instructions ?Recorded naproxen 500 mg tablet 500 mg PO BID PRN pain 30 days #60 01/16/22 tabs acetaminophen 500 mg tablet 1,000 mg (2 x 500 mg) PO Q6H PRN 09/28/23 (Tylenol Extra Strength) fever or pain #20 tabs ibuprofen 400 mg tablet 400 mg PO TID PRN fever or pain 09/28/23 #30 tabs Allergies Allergy/AdvReac Type Severity Reaction Status Date / Time No Known Allergies Allergy Verified 09/28/23 17:52 [No Known Allergies*] Review of Systems Review of Systems: Yes all other systems are reviewed and are negative [facility] Past Medical History [facility] Narrative: Social history: The patient works for a [employer]. 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 Patient's finger appears to be vascularly intact. Course Course Course Narrative: This is a Rapid Medical Examination (RME) performed by Luis Carlos Burt PA-C in triage. Full HPI, ROS, assessment and treatment plan per primary provider in the Main ED. 47 yo luxembourgish speaking male here for eval of right fifth digit injury sustained at work a week ago. states he was trying to stop a rolling piece of metal d/t the leaver being broken causing him to jam his finger. previously seen for injury, had xrs obtained on 09/25/23 and has not received the results. +noted swelling to right fifth digit. limited ROM d/t swelling. Plan: xr ordered Medical Decision Making Medical Decision Making MDM Narrative: 47-year-old male with a history hypertension, pre diabetes, hypothyroidism, who presents emergency department for evaluation of an injury to the tip of the right 5th finger Discharge Plan Discharge Clinical Impression: Distal phalanx or phalanges, closed fracture Qualifiers: Encounter type: initial encounter Finger: little finger Fracture alignment: displaced Laterality: right Qualified Code(s): S62.636A - Displaced fracture of distal phalanx of right little finger, initial encounter for closed fracture Patient Disposition: Home, Self-Care Instructions: Finger Fracture (ED) Additional Instructions: You have a broken bone of the bone at the bone of the end of your pinky finger (distal phalanx). You may have also disrupted the extensor tendons and that is why your finger is bent at the joint in you can not move it. I want you to keep the splint on until you follow-up with the [facility]. You will need to be seen by hand surgeon. The occupational health clinic can refer you to our hand surgeon, Dr. Han or they will need to refer you to one of their hand surgeons. Take ibuprofen 400 mg pills, 1 pills every 6 hours as needed for pain or fever. Take Tylenol (acetaminophen) 500 mg pills, 2 pills every 6 hours as needed for pain or fever. Follow-up with your doctor in 2 days. Please return to the emergency department if your symptoms get worse or if you develop any symptoms that are concerning to you. Prescriptions: New acetaminophen [Tylenol Extra Strength] 500 mg tablet 1,000 mg PO Q6H PRN (Reason: fever or pain) Qty: 20 0RF ibuprofen 400 mg tablet 400 mg PO TID PRN (Reason: fever or pain) Qty: 30 0RF No Action naproxen 500 mg tablet 500 mg PO BID PRN (Reason: pain) 30 Days Qty: 60 2RF tramadol 50 mg tablet 50 mg PO Q8H PRN (Reason: severe pain) diclofenac sodium 1 % gel 2 g topical DAILY PRN (Reason: pain) hydroxyzine pamoate 25 mg capsule 25 mg PO QAM trazodone 100 mg tablet 100 mg PO BEDTIME sertraline 50 mg tablet 50 mg PO QAM acetaminophen 650 mg tablet extended release 650 mg PO Q8H PRN (Reason: pain) meclizine 25 mg tablet 25 mg PO BID PRN (Reason: dizziness) cyclobenzaprine 10 mg tablet 10 mg PO TID oseltamivir 75 mg capsule 75 mg PO BID levothyroxine 25 mcg tablet 25 mcg PO DAILY terbinafine HCl 250 mg tablet 250 mg PO QAM Referrals: Angelina Al MD [Physician] - 5 days (Right 5th distal phalanx displaced fracture, possible extensor tendon injury-work related. Injury occurred 3 weeks prior) Stand Alone Forms: Work/School Release Print Language: Stateless
--- NOTE | 2023-09-28 22:56 | PC.NURSE ---
pt from lobby, assume care of pt at this time
[2023-09-28] MEDS: Ibuprofen 400 MG TABLET PO (23:38)
[2023-09-29 00:19] VITALS: BP 136/68; PULSE 76; RESP 18; TEMP 36.4; O2SAT 98
== END 2023-09-28 23:38 | disposition home or self-care (01) ==
PROVIDERS: Emergency Provider Emergency Medicine Emergency Medical Services; PCP Nurse Practitioner Primary Care
DX: S62.636A Displaced fracture of distal phalanx of right little finger, initial encounter for closed fracture (principal); W22.8XXA Striking against or struck by other objects, initial encounter; Y93.89 Activity, other specified; Y92.59 Other trade areas as the place of occurrence of the external cause; Y99.0 Civilian activity done for income or pay
CPT/HCPCS: 73140; 99283; 99284

== ENCOUNTER 2023-10-03 16:34 | Outpatient (REF) | payer OTHER, MEDICAID, SELFPAY | END 2023-10-03 16:35 | disposition home or self-care (01) | LOC: HO.HOSX 16:34 | PROVIDERS: Visit Provider Orthopaedic Surgery | DX: Z13.89 Encounter for screening for other disorder (principal) ==

== ENCOUNTER 2023-10-27 07:58 | Outpatient (REF) | payer MEDICAID, SELFPAY ==
[2023-10-27 08:16] LABS: MANUAL DIFF FLAG NO
[2023-10-27 08:41] LABS: Basophils Absolute Auto 0.1 X10*3/uL (0.0-0.2); Basophils Percent Auto 0.7 % (0-2); Eosinophils Absolute Auto 0.2 X10*3/uL (0.0-0.4); Eosinophils Percent Auto 2.3 % (0-4); Hematocrit 47.9 % (42.0-52.0); Imm Gran Abs Auto 0.02 X10*3/uL (0.00-0.03); Imm Gran Pct Auto 0.2 % (0.0-0.4); Lymphocytes Absolute Auto 2.5 X10*3/uL (1.2-4.9); Lymphocytes Percent Auto 30.4 % (20-40); Mean Corpuscular HGB Conc 33.4 g/dl (31.0-36.0); Mean Corpuscular Volume 89.9 fL (80.0-98.0); Mean Platelet Volume 10.3 fL (9.4-12.4); Monocytes Absolute Auto 0.8 X10*3/uL (0.1-1.2); Monocytes Percent Auto 9.6 % (2-11); Neutrophils Absolute Auto 4.7 x10*3/uL (2.0-8.3); Neutrophils Percent Auto 56.8 % (45-73); Platelet Count 333 X10*3/uL (160-400); Red Blood Count 5.33 X10*6/uL (4.60-5.80); White Blood Count 8.2 X10*3/uL (4.8-10.8)
[2023-10-27 09:30] LABS: Anion Gap 13 (12-20); Blood Urea Nitrogen 11 mg/dL (9-16); Calcium 9.6 mg/dL (8.4-10.2); Carbon Dioxide 28 mmol/L (22-29); Chloride 106 mmol/L (96-108); Cholesterol 177 mg/dL (<200); Estimated Glomerular Filt Rate > 60; Glucose Random 101 mg/dL (60-115); HDL Cholesterol 52 mg/dL (>40); LDL Cholesterol Calculated 106 mg/dL (<100); Magnesium 2.4 mg/dL (1.6-2.6); Potassium 3.6 mmol/L (3.3-5.1); Sodium 143 mmol/L (135-145); Triglycerides 95 mg/dL (<150)
[2023-10-27 09:32] LABS: TSH reflex Free T4 3.18 uIU/mL (0.32-4.0)
[2023-10-27 10:09] LABS: Creatinine Urine 162.44 mg/dL
== END 2023-10-27 07:59 | disposition home or self-care (01) ==
LOC: HO.LAB 07:58
PROVIDERS: PCP Nurse Practitioner Primary Care; Visit Provider Nurse Practitioner Primary Care
DX: I10 Essential (primary) hypertension (principal); E78.1 Pure hyperglyceridemia; R73.03 Prediabetes; R42 Dizziness and giddiness; E03.8 Other specified hypothyroidism
CPT/HCPCS: 36415; 80048; 80061; 82043; 82570; 83735; 84443; 85025

== ENCOUNTER 2023-11-01 15:37 | Outpatient (REF) | payer OTHER, SELFPAY ==
[2023-11-01 16:42] LABS: Estimated Average Glucose 108 mg/dL; Hemoglobin A1c % 5.4 % (<6.0)
[2023-11-01 16:49] LABS: Alanine Aminotransferase 23 U/L (0-40); Albumin Level 4.8 g/dL (3.5-5.0); Alkaline Phosphatase 71 U/L (39-117); Aspartate Amino Transferase 21 U/L (5-37); Bilirubin Direct 0.1 mg/dL (0.0-0.5); Bilirubin Total 0.4 mg/dL (0.0-1.0); Total Protein 8.2 g/dL (6.5-8.0)
[2023-11-02 04:19] LABS: HBS Num1 0.78 mIU/mL (0-7.99); HBc Num1 0.13 S/CO (0.00-0.79); HBsAGNum1 0.32 S/CO (0.00-0.99); HIV AB/AG Nonreactive (Nonreactive); HIV Num 1 0.05 S/CO (0.00-0.99); Hepatitis A Antibody IgM 0.14 Index (0-0.79); Hepatitis B Core Antibody Nonreactive (Nonreactive); Hepatitis B Surface Antigen Negative (Negative); ~HepC Num1 0.12 S/CO (0.00-0.79); ~Hepatitis A Antibody IgM Nonreactive (Nonreactive); ~Hepatitis B Surface Antibody NONREACTIVE (Nonreactive); ~Hepatitis C Antibody Nonreactive (Nonreactive)
[2023-11-02 13:27] LABS: RPR Rapid Plasma Reagin NON-REACTIVE (NON-REACTIVE)
[2023-11-03 14:18] LABS: A. Phagocytphilium DNA,RT-PCR NOT DETECTED (NOT DETECTED); Babesia Microti DNA, RT-PCR NOT DETECTED (NOT DETECTED); Borrelia Miyamotoi,DNA RT-PCR NOT DETECTED (NOT DETECTED); E.Chaffeensis DNA RT-PCR NOT DETECTED (NOT DETECTED); Lyme(Borrelia ssp)DNA RT-PCR NOT DETECTED (NOT DETECTED)
== END 2023-11-01 15:38 | disposition home or self-care (01) ==
LOC: HO.HHCL 15:37
PROVIDERS: Visit Provider Nurse Practitioner Primary Care
DX: Z11.3 Encounter for screening for infections with a predominantly sexual mode of transmission (principal); R73.03 Prediabetes; H93.11 Tinnitus, right ear; K76.0 Fatty (change of) liver, not elsewhere classified
CPT/HCPCS: 36415; 80076; 83036; 86592; 86704; 86706; 86709; 86803; 87340; 87389; 87468; 87469; 87478; 87484; 87798

== ENCOUNTER 2023-11-17 08:31 | Outpatient (REF) | payer OTHER, SELFPAY ==
--- NOTE | ~2023-11-17 | MR_ITS ---
EXAMINATION: MR BRAIN WITHOUT CONTRAST CLINICAL INFORMATION: Anterior falcine calcified mass lesion, history of right facial numbness COMPARISON: CT scan of brain on 06/23/2023 TECHNIQUE: MRI of the brain was obtained using routine sequences without contrast. FINDINGS: Ventricles, sulci and cisterns are normal. No focal cerebral, brainstem or cerebellar lesions with abnormal signal can be seen. Diffusion weighted images show no abnormal regional decrease in diffusion. Normal flow voids of major intracerebral blood vessels are seen in the visualized portion. A semilunar shaped T1 hyperintense, T2 hypointense fat-suppressed anterior right frontal parafalcine lesion measuring 2.9 cm in AP diameter, 0.8 cm in width, 1.3 cm in vertical height is seen. The pituitary gland is normal. Optic chiasm is not displaced. Cerebellar tonsils position is normal. Mild mucosal thickening is seen in posterior left maxillary sinus floor. MR/MR head/brain wo con IMPRESSION: 1. 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 2. No acute cerebral infarction is seen. 3. No evidence of intracranial hemorrhage. Electronically signed by: Daysi Shin MD 12/06/2023 01:20 PM EDT
== END 2023-11-17 08:32 | disposition home or self-care (01) ==
LOC: HO.MRI 08:31
PROVIDERS: PCP Nurse Practitioner Primary Care; Visit Provider Nurse Practitioner Primary Care
DX: R93.0 Abnormal findings on diagnostic imaging of skull and head, not elsewhere classified (principal)
CPT/HCPCS: 70551

== ENCOUNTER 2023-12-06 11:58 | Outpatient (REF) | payer MEDICAID, SELFPAY ==
[2023-12-06 14:30] LABS: Rheumatoid Factor < 13.0 IU/mL (<15.0)
[2023-12-10 22:53] LABS: Cyclic Citrullinated Peptide <16 UNITS
== END 2023-12-06 11:59 | disposition home or self-care (01) ==
LOC: HO.HHCL 11:58
PROVIDERS: Visit Provider Nurse Practitioner Primary Care
DX: M25.50 Pain in unspecified joint (principal)
CPT/HCPCS: 36415; 86200; 86431